=== PATIENT | male | born 1955 | race Caucasian/White ===

== ENCOUNTER 2021-03-13 15:12 | Observation (INO) | payer OTHER ==
--- OUTSIDE RECORDS SUMMARY | 2021-03-13 15:18 | XMS REPORT | Continuity of Care Document ---
:1955 Author Organization [facility] t Address [address] [place] [address] Dr. Barrera. [address] [place] [address] Care Team Providers Name Role Phone Yahaira Lema Primary Care Physician MARK LOPEZ Attending Clinician Unavailable Nurse, Pob Immunization Attending Clinician Unavailable Mark Lopez DO Attending Clinician Sanaz BLOUNT Attending Clinician Unavailable Rojelio MERCADO, A Attending Clinician Doctor Unassigned, Name Attending Clinician Unavailable Pob, Lab Main Attending Clinician Unavailable ROJELIO, A Admitting Clinician Unavailable Rojelio MERCADO, A Admitting Clinician Payers Payer Name Policy Type Policy Number Effective Date Expiration Date S [facility] MEDICARE PART A \T\ [id number] 2019 B 00:00:00 COMMERCIAL [id number] 2019 NON-CONTRACT 00:00:00 GENERIC Problems This patient has no known problems. Allergies, Adverse Reactions, Alerts Allergy Allergy Status Severity Reaction(s) Onset Inactive Treating Comm ents Source Name Type Date Date Clinician METRONID DRUG Active Other-Cmnt 2020-04 Univ ers AZOLE INGREDI 04-09 ity of 00:00: [place] [address] [place] [address] Branch Metronid Propensi Active Other - See 2020-04 Юлия Carter azole ty to comments 04-09 shivers ity of adverse 00:00: [place] reaction Medical Branch FLUTICAS DRUG Active Med Palpitations 2020-04 Un melvin ONE -05 ity of PROPION- 00:00: [place] SALMETER 00 Medical OL Branch Fluticas Propensi Active Palpitations 2020-04 Univers one ty to 05 ity of Propion- adverse 00:00: [place] Salmeter reaction 00 Medica l ol s Branch Flagyl Adverse Active shakes [facility] Advair Adverse Active Irregular HR [facility] Diskus Reaction palpiations [facility] NO KNOWN Drug Active Univers ALLERGIE Class ity of [facility] Social History Social Habit Start Date Stop Date Quantity Comments Source Exposure to Not sure [facility] SARS-CoV-2 (event) [facility] D[place] l [place] Tobacco use and 2021-02-07 2021-02-07 Never used [facility] exposure 00:00:00 00:00:00 [facility] Sex Ass[birth year] At [birth year] [facility] 00:00:00 00:00:00 [facility] Smoking Status Start Date Stop Date Source Unknown if ever smoked [facility] Never smoker [facility] Medications Ordered Filled Start Stop Current Ordering Indication Dosage Frequency Signature Comments Components Source Medication Medication Date Date Medication? Clinician (SIG) Name Name neomycin-po 2020-04 Yes PRN, Univer s lymyxin-dex 1-10 Starting ity of amethasone 14:34: on Sun (MAXITROL) 00 02/09/21 Medic al 3.5 at 0834, Branch mg/g-10,000 Until unit/g-0.1 Discontinu % ed, ophthalmic Routine, ointment Intra-op neomycin-po 2020-04 No PRN, Unive rs lymyxin-dex 1-10 02-09 Starting ity of amethasone 14:34: 17[place]26 [place] (MAXITROL[place] 00 :14 02/09/21 Medic al 3.5 at 0834, Branch mg/g-10,000 Until Sun unit/g-0.1 02/09/21 % at 1126, ophthalmic Routine, ointment Intra-op DUOVISC 2020-04 Yes PRN, Univers (DUOVISC 1-10 Starting ity of VISCO 14:33: on Sun [place] ELASTIC) 3 00 02/09/21 Medic al %-4 %(0.5 at 0833, Branch mL) 1 % Until (0.55 mL) Discontinu intraocular ed, injection Routine, Intra-op dexamethaso 2020-04 Yes PRN, Univer s ne - Starting ity of (DECADRON 14:33: on Sun [place] PHOSPHATE) 00 02/09/21 Medic al injection at 0833, Branch Until Discontinu ed, Routine, Intra-op ceFAZolin 2020-04 Yes PRN, Univers (ANCEF) 04-11 Starting ity of injection 14:33: on Wed [place] 00 02/09/21 Medical at 0833, Branch Until Discontinu ed, MESERET, Intra-op dexamethaso 2020-04- No PRN, Univcesar rs ne 04-11 Starting ity of (DECADRON 14:33: 17:26 on Sun PHOSPHATE) 00 :14 02/09/21 Medic al injection at 0833, Branch Until Sun02/09/21 at 1126, Routine, Intra-op ceFAZolin 2020-04- No PRN, Univers (ANCEF) 04-11 Starting ity of injection 14:33: 17:26 on Sun [place] 00 :14 02/09/21 Medical at 0833, Branch Until Sun02/09/21 at 1126, MESERET, Intra-op DUOVISC 2020-04- No PRN, Univers (DUOVISC 04-11 Starting ity of VISCO 14:33: 17:26 on Sun ELASTIC) 3 00 :14 02/09/21 Medic al %-4 %(0.5 at 0833, Branch mL) 1 % Until Sun (0.55 mL) 02/09/21 intraocular at 1126, injection Routine, Intra-op carbachoL 2020-04 Yes PRN, Univers (MIOSTAT) 04-11 Starting ity of 0.01 % 14:32: on Sun [place] intraocular 00 02/09/21 Medi nato injection at 0832, Branch Until Discontinu ed, Routine, Intra-op carbachoL 2020-04- No PRN, Univers (MIOSTAT) 04-11 Starting ity o f 0.01 % 14:32: 17:26 on Sun [place] intraocular 00 :14 11/10/21 Medi nato injection at 0832, Branch Until Sun02/09/21 at 1126, Routine, Intra-op sodium 2020-04 Yes PRN, Univers chloride 1-10 Starting ity of (NS) 14:30: on Sun [place] injection 00 02/09/21 Medica l at 0830, Branch Until Discontinu ed, Routine, Intra-op sodium 2020-04- No PRN, Univers chloride 1-10 11-10 Starting ity of (NS) 14:30: 17:26 on Sun [place] injection 00 :14 02/09/21 Medica l at 0830, Branch Until Sun02/09/21 at 1126, Routine, Intra-op EPINEPHrine 2020-04 Yes PRN, Univer s 1:1,000 (1 1-10 Starting ity o f mg/mL) 14:17: on Sun (ADRENALIN) 00 02/09/21 Medi nato injection at 0817, Branch Until Discontinu ed, Routine, Intra-op balanced 2020-04 Yes PRN, Univers salt irrig 1-10 Starting ity o f soln comb1 14:17: on Sun (BSS PLUS) 00 02/09/21 Medic al ophthalmic at 0817, Branc h solution Until 500 mL bag Discontinu ed, Routine, Intra-op EPINEPHrine 2020-04- No PRN, Unive rs 1:1,000 (1 1-10 11-10 Starting ity of mg/mL) 14:17: 17:26 on Sun (ADRENALIN) 00 :14 02/09/21 Medi nato injection at 0817, Branch Until Sun02/09/21 at 1126, Routine, Intra-op balanced 2020-04- No PRN, Univers salt irrig 1-10 11-10 Starting ity of soln comb1 14:17: 17:26 on Suna s (BSS PLUS) 00 :14 02/09/21 Medic al ophthalmic at 0817, Branc h solution Until Sun 500 mL bag 02/09/21 at 1126, Routine, Intra-op water for 2020-04 Yes PRN, Univers irrigation 1-10 Starting ity o f irrigation 14:12: on Sun [place] solution 00 02/09/21 Medical at 0812, Branch Until Discontinu ed, Routine, Intra-op water for 2020-04- No PRN, Univers irrigation 1-10 11-10 Starting ity of irrigation 14:12: 17:26 [place] solution 00 :14 02/09/21 Medical at 0812, Branch Until Sun02/09/21 at 1126, Routine, Intra-op Hyaluronida 2020-04 Yes PRN, Univer s se, Human 1-10 Starting ity of Recomb. 14:09: on Sun [place] (HYLENEX) 02/09/21 Medica l injection at 0809, Branch Until Discontinu ed, Routine, Intra-op eye block 2020-04 Yes PRN, Univers syringe 11 1-10 Starting ity o f mL 14:09: on Sun [place] 02/09/21 Medical at 0809, Branch Until Discontinu ed, Intra-op Hyaluronida 2020-04- No PRN, Unive rs se, Human 1- 11-10 Starting ity o f Recomb. 14:09: 17:26 on Sun [place] (HYLENEX) 00 :14 02/09/21 Medica l injection at 0809, Branch Until Sun02/09/21 at 1126, Routine, Intra-op eye block 2020-04- No PRN, Univers syringe 11 1-10 11-10 Starting ity of mL 14:09: 17:26 on Sun [place] 00 :14 02/09/21 Medical at 0809, Branch Until Sun02/09/21 at 1126, Intra-op mydriatic 2020-04- No .5mL 0.5 mL, Univ ers #5 1-10 11-10 Left Eye, ity of ophthalmic 13:00: 12:55 ONCE, 1 [place] solution 00 :00 dose, On Medical 0.5 mL [facility] syringe 02/09/21 at 0700, Routine, DSU Pre-op mydriatic 2020-04- No .5mL 0.5 mL, Univ ers #5 1-10 11-10 Left Eye, ity of ophthalmic 13:00: 12:55 ONCE, 1 [place] solution 00 :00 dose, On Medical 0.5 mL [facility] syringe 02/09/21 at 0700, Routine, DSU Pre-op lactated 2020-04- No 1000mL at 42 Unive rs ringers IV 1-10 11-10 mL/hr, ity of infusion 12:45: 13:04 1,000 mL, Kev as 1,000 mL 00 :00 IV Medical Infusion, Branch ONCE, 1 dose, On Sun02/09/21 at 0645, Routine, DSU Pre-op lactated 2020-04- No 1000mL at 42 Unive rs ringers IV 1-10 11-10 mL/hr, ity of infusion 12:45: 13:04 1,000 mL, Kev as 1,000 mL 00 :00 IV Medical Infusion, Branch ONCE, 1 dose, On Sun02/09/21 at 0645, Routine, DSU Pre-op NOVOLIN 2020-04 Yes Univers 70/30 U-100 0-19 ity of INSULIN 100 00:00: [place] unit/mL 00 Medical (70-30) Branch suspension NOVOLIN 2020-04 Yes Univers 70/30 U-100 0-19 ity of INSULIN 100 00:00: [place] unit/mL 00 Medical (70-30) Branch suspension NOVOLIN 2020-04 Yes Univers 70/30 U-100 0-19 ity of INSULIN 100 00:00: [place] unit/mL 00 Medical (70-30) Branch suspension NOVOLIN 2020-04 Yes Univers 70/30 U-100 0-19 ity of INSULIN 100 00:00: [place] unit/mL 00 Medical (70-30) Branch suspension atorvastati 2020-04 Yes Univer s n 20 mg 0-18 ity of tablet 00:00: Medical Branch carvediloL 2020-04 Yes Univers 12.5 mg 0-18 ity of tablet 00:00: Medical Branch clopidogreL 2020-04 Yes Univer s 75 mg 0-18 ity of tablet 00:00: Medical Branch glimepiride 2020-04 Yes Univer s 4 mg tablet 0-18 ity of 00:00: Medical Branch levocetiriz 2020-04 Yes Univer s ine 5 mg 0-18 ity of tablet 00:00: Medical Branch EUTHYROX 88 2020-04 Yes Univer s mcg tablet 0-18 ity of 00:00: [facility] Branch losartan-hy 2020-04 Yes Univer s drochloroth 0-18 ity of iazide 00:00: [place] 100-12.5 mg 00 Medical per tablet Branch metFORMIN 2020-04 Yes Univers 1,000 mg 0-18 ity of tablet 00:00: [place] [facility] Branch atorvastati 2020-04 Yes Univer s n 20 mg 0-18 ity of tablet 00:00: [address] Branch carvediloL 2020-04 Yes Univers 12.5 mg 0-18 ity of tablet 00:00: [place] [facility] Branch clopidogreL 2020-04 Yes Univer s 75 mg 0-18 ity of tablet 00:00: [place] [facility] Branch glimepiride 2020-04 Yes Univer s 4 mg tablet 0-18 ity of 00:00: [address] Branch levocetiriz 2020-04 Yes Univer s ine 5 mg 0-18 ity of tablet 00:00: [address] EUTHYROX 88 2020-04 Yes Univer s mcg tablet 0-18 ity of 00:00: [address] Branch losartan-hy 2020-04 Yes Univer s drochloroth 0-18 ity of iazide 00:00: [place] 100-12.5 mg 00 Medical per tablet Branch metFORMIN 2020-04 Yes Univers 1,000 mg 0-18 ity of tablet 00:00: [place] [facility] Branch atorvastati 2020-04 Yes Univer s n 20 mg 0-18 ity of tablet 00:00: [address] Branch carvediloL 2020-04 Yes Univers 12.5 mg 0-18 ity of tablet 00:00: [address] Branch clopidogreL 2020-04 Yes Univer s 75 mg 0-18 ity of tablet 00:00: [place] [facility] Branch glimepiride 2020-04 Yes Univer s 4 mg tablet 0-18 ity of 00:00: [place] [address] Medical Branch levocetiriz 2020-04 Yes Univer s ine 5 mg 0-18 ity of tablet 00:00: [address] EUTHYROX 88 2020-04 Yes Univer s mcg tablet 0-18 ity of 00:00: [address] Branch losartan-hy 2020-04 Yes Univer s drochloroth 0-18 ity of iazide 00:00: [place] 100-12.5 mg 00 Medical per tablet Branch metFORMIN 2020-04 Yes Univers 1,000 mg 0-18 ity of tablet 00:00: [place] 00 Medical Branch atorvastati 2020-04 Yes Univer s n 20 mg 0-18 ity of tablet 00:00: [place] 00 Medical Branch carvediloL 2020-04 Yes Univers 12.5 mg 0-18 ity of tablet 00:00: [place] 00 Medical Branch clopidogreL 2020-04 Yes Univer s 75 mg 0-18 ity of tablet 00:00: 00 Medical Branch glimepiride 2020-04 Yes Univer s 4 mg tablet 0-18 ity of 00:00: [place] 00 Medical Branch levocetiriz 2020-04 Yes Univer s ine 5 mg 0-18 ity of tablet 00:00: 00 Medical Branch EUTHYROX 88 2020-04 Yes Univer s mcg tablet 0-18 ity of 00:00: 00 Medical Branch losartan-hy 2020-04 Yes Univer s drochloroth 0-18 ity of iazide 00:00: [place] 100-12.5 mg 00 Medical per tablet Branch metFORMIN 2020-04 Yes Univers 1,000 mg 0-18 ity of tablet 00:00: [place] 00 Medical Branch Metformin Metformin 2020-0 Yes Chelo [address] HCl HCl 9-01 [place] with a [facility] 00:[facility] Immunizations Ordered Filled Immunization Date Status Comments Sour e Immunization Name Name SARS-COV-2 COVID-19 2021-02-16 Completed Unive rsity of MODERNA BOOSTER 00:00:00 [place] [facility] VACCINE Branch SARS-COV-2 COVID-19 2020-07-14 Completed Unive rsity of MODERNA VACCINE 00:00:00 [facility] SARS-COV-2 COVID-19 2020-07-14 Completed Unive rsity of MODERNA VACCINE 00:00:00 [facility] SARS-COV-2 COVID-19 2020-07-14 Completed Unive rsity of MODERNA VACCINE 00:00:00 [facility] SARS-COV-2 COVID-19 2020-07-14 Completed Unive rsity of MODERNA VACCINE 00:00:00 [facility] SARS-COV-2 COVID-19 2020-06-16 Completed Unive rsity of MODERNA VACCINE 00:00:00 [facility] SARS-COV-2 COVID-19 2020-06-16 Completed Unive rsity of MODERNA VACCINE 00:00:00 [facility] SARS-COV-2 COVID-19 2020-06-16 Completed Unive rsity of MODERNA VACCINE 00:00:00 [facility] SARS-COV-2 COVID-19 2020-06-16 Completed Unive rsity of MODERNA VACCINE 00:00:00 [facility] Vital Signs Vital Name Observation Time Observation Value Comments Source Respiratory rate 2021-02-09 14:55:00 14 /min Univ ersity [facility] [place] [facility] Systolic blood 2021-02-09 14:54:00 138 mm[Hg] Univer sity of pressure [facility] Diastolic blood 2021-02-09 14:54:00 69 mm[Hg] Unive rsity of pressure [facility] Heart rate 2021-02-09 14:54:00 68 /min [facility] Oxygen saturation in 2021-02-09 14:54:00 94 /min University of Arterial blood by [place] [employer] Pulse oximetry Branch Body temperature 2021-02-09 14:38:00 36.22 Carol Univ ersity [facility] [place] [facility] Body height 2021-02-04 15:22:00 172.8 cm [facility] Body weight 2021-02-04 15:22:00 123.9 kg [facility] BMI 2021-02-04 15:22:00 41.49 kg/m2 [facility] Systolic blood 2021-02-09 12:51:00 146 mm[Hg] Univer sity of pressure [facility] Diastolic blood 2021-02-09 12:51:00 74 mm[Hg] Unive rsity of pressure [facility] Heart rate 2021-02-09 12:51:00 73 /[facility] 2021-02-09 12:51:00 36.22 Carol Univ ers[facility] [place] [facility] Respiratory rate 2021-02-09 12:51:00 13 /min Univ ersity of [place] [facility] Oxygen saturation in 2021-02-09 12:51:00 96 /min University of Arterial blood by [facility] [place] [facility] Pulse oximetry [place] BMI 2021-02-04 15:22:00 41.49 kg/m2 [facility] Body height 2021-02-04 15:22:00 172.8 cm [facility] Body weight 2021-02-04 15:22:00 123.9 kg [facility] Procedures Procedure Date / Time Performing Source Performed Clinician SARS-COV-2 COVID-19 VACCINE 2021-02-16 Doctor Unassigned, [facility] BOOSTER,0.25ML,IM (MODERNA) 17:31:43 [place] [facility] PHACOEMULSIFICATION OF 2021-02-09 Vito Blount [facility] CATARACT WITH INTRAOCULAR 13:59:00 [facility] LENS IMPLANT POCT GLUCOSE (AUTOMATED) 2021-02-09 Vito Blount [facility] 13:02:00 [facility] POCT GLUCOSE (AUTOMATED) 2021-02-09 Vito Blount [facility] 13:02:00 [facility] DAY SURGERY - ADC 2021-02-09 Doctor Unassigned, [facility] 06:01:00 [place] [facility] ASSIGNMENT OF BENEFITS 2021-01-31 Doctor Unassigned, [facility] 18:06:26 [place] [facility] Encounters Start End Encounter Admission Attending Care Care Encounter Source Date/Time Date/Time Type Type Clinicians Facility Department ID 2021-02-16 2021-02-16 Outpatient R ADALGISA [facility] [id number] Univers 11:20:00 11:20:00 DC callahan [facility] 2021-02-16 2021-02-16 Imm/Inj Nurse, [facility] Pob Immunization [facility] [id number] Univers 11:14:58 11:15:06 Visit Dc Lopez [id number] .10 banner [facility] MEAGAN [id number] Nelly NEVES [id number] Wi dical [address] 2021-02-09 2021-02-09 Outpatient R ROJELIO [facility] OPH [id number] Univers 06:37:00 09:12:00 VITO callahan [facility] 2021-02-09 2021-02-09 [facility] [id number] Univers 06:37:00 09:12:00 Encounter Vito LOCKHART [id number] ity of [id number] SURGICAL [id number] [facility] 071 [place] 2021-02-09 2021-02-[address] [facility] [id number] Univers 07:30:00 08:09:00 Vito Yo CHANTELLE [id number] ity [facility] [id number] [place] SUR[place]ICAL [id number] [facility] 020 Branch 2021-02-09 2021-02-09 Orders Doctor DANTE [id number] Univers 00:00:00 00:00:00 Only Unassigned, [place] [id number] ity of [place] [facility] [id number] Kev as [id number] [address] 2021-02-08 2021-02-08 [facility] [id number] Univers 11:00:00 11:00:00 VITO callahan [facility] 2021-01-31 2021-01-31 Macaroni Maker Hannah, [facility] Lab Main [facility] [id number] Univers 13:03:41 13:18:41 Visit Vito Blount [id number] 0 ity [facility] [id number] [place] PROFESSIO [id number] [facility] 2021-01-31 2021-01-31 [facility] [id number] Univers 08:45:00 08:45:00 VITO callahan [facility] 2021-01-31 2021-01-31 Orders Doctor HOWELL [id number] Univers 00:00:00 00:00:00 Only Unassigned, [place] [id number] ity of [place] [facility] [id number] Kev as [id number] [facility] 009 [place] 2021-01-17 2021-01-17 Outpatient [facility]MLC [facility] [id number] [facility] 2020-12-23 2020-12-23 Outpatient [facility]LMLC [facility] [id number] [facility] 2020-12-23 2020-12-23 Outpatient [facility]LMLC [facility] [id number] [facility] 2020-12-21 2020-12-21 Outpatient [facility]LMLC [facility] [id number] [facility] 2020-11-10 2020-11-10 Outpatient STLMLC [facility] [id number] [facility] 2020-10-21 2020-10-21 Outpatient STLMLC STLC [id number] [facility] 2020-04-30 2020-04-30 Outpatient STLMLC [facility] [id number] [facility] 2020-01-21 2020-01-21 Outpatient STLMLC [facility]ML[facility] [id number] [facility] 2020-01-16 2020-01-16 Outpatient STLMLC [facility]ML[facility] [id number] [facility] 2019-12-02 2019-12-02 [facility] [id number] 09:59:00 09:59:[address] [place] [address] [facility] Family Medicine l Medicine Outpati ent Clinics 2019-10-31 2019-10-31 [facility] [id number] 08:40:00 08:40:[address] [place] [address] [facility] Family Medicine l Medicine Outpati ent Clinics 2019-10-23 2019-10-23 [facility] [id number] 17:21:00 17:21:00 t [facility] Medicine Medicine Outpati ent Clinics 2019-06-25 2019-06-25 [facility] [id number] 17:15:00 17:15:00 t [facility] Medicine Outpati ent Clinics 2019-06-06 2019-06-06 [facility] [id number] 13:54:00 13:54:00 t [facility] Medicine l Medicine Outpati ent Clinics 2019-05-02 2019-05-02 [facility] [id number] 09:40:00 09:40:00 t [facility] Medicine Outpati ent Clinics 2019-03-03 2019-03-03 [facility] [id number] 13:19:00 13:19:00 t [facility] Medicine Outpati ent Clinics 2019-02-19 2019-02-19 [facility] [id number] 11:46:00 11:46:00 t [facility] Medicine Outpati ent Clinics 2018-10-30 2018-10-30 [facility] [id number] 19:28:00 19:28:00 t [facility] Medicine Outpati ent Clinics 2018-10-25 2018-10-25 [facility] [id number] 09:40:00 09:40:00 t [facility] Medicine Medicine Outpati ent Clinics 2018-10-11 2018-10-11 [facility] [id number] 09:45:00 09:45:00 t [facility] Medicine Outpati ent Clinics 2018-04-23 2018-04-23 [facility] [id number] 14:30:00 14:30:00 t [facility] Medicine Medicine Outpati ent Clinics 2017-09-19 2017-09-19 [facility] [facility] [id number] 08:30:00 08:30:00 t [facility] Medicine Outpati ent Clinics 2017-09-10 2017-09-10 [facility] [id number] 15:42:00 15:42:00 t [facility] Medicine Outpati ent Clinics 2017-08-29 2017-08-29 Outpatient [facility] [id number] [facility] 14:48:00 14:48:00 t [facility] Medicine Outpati ent Clinics 2017-08-21 2017-08-21 Outpatient [place]um [facility] [id number] 15:45:00 15:45:00 t [facility] Medicine Outpati ent Clinics Results Test Description Test Time Test Comments Results Result Comments Source POCT GLUCOSE (AUTOMATED) 2021-02-09 13:07:21 Test Item Value Reference Range Interpretation Comme nts POCT GLU (test code = [id number]) 197 mg/dL 70-110 H Lab Interpretation (test code = 01760-0) Abnormal [facility] GLUCOSE (AUTOMATED)2021-02-09 13:07:21 Test Item Value Reference Range Interpretation Comments POCT GLU (test code = [id number]) 197 mg/dL 70-110 H Lab Interpretation (test code = Abnormal 13101-6) [facility] [id number] 13:02:00 Test Item Value Reference Range Interpretation Comments POCT Glu (age>30days) (test code = 197 mg/dL 70-110 A 3342) Lab Interpretation (test code = Abnormal 07950-6) [facility] [id number] 13:02:00 Test Item Value Reference Range Interpretation Comments POCT Glu (age>30days) (test code = 197 mg/dL 70-110 A 3342) Lab Interpretation (test code = Abnormal 00202-0) [facility]
[2021-03-13] MEDS ORDERED: ONDANSETRON 4 MG/2 ML VIAL ONE ×2 (16:44→21:44)
[2021-03-13] MEDS ORDERED: MORPHINE 4 MG/ML SYR ONE (16:44)
[2021-03-13] MEDS ORDERED: NA CHLORIDE 0.9% 500 ML ONE ×2 (16:45→18:24)
[2021-03-13] MEDS ORDERED: FAMOTIDINE 20 MG/2 ML VIAL IV ONE (16:45)
[2021-03-13 17:12] LABS: Urine Blood 3+ (Negative); Urine Glucose 2+ (Negative); Urine Protein 2+ (Negative)
[2021-03-13 17:19] LABS: Absolute Lymphocytes (CBC) 1.1 K/uL (0.7-4.9); Basophils % 0.3 % (0-1.3); MPV 8.6 fL (7.6-11.3); RBC Red Blood Cell Count 5.09 M/uL (4.33-5.43)
[2021-03-13 17:28] LABS: Protime INR 1.17
[2021-03-13 17:39] LABS: ALT/SGPT 54 U/L (12-78); AST/SGOT 32 U/L (15-37); Alkaline Phosphatase 84 U/L (45-117); BUN Blood Urea Nitrogen 34 mg/dL (7-18); Bicarbonate 26 mmol/L (21-32); Bilirubin Direct 0.3 mg/dL (0-0.2); Bilirubin Total 0.9 mg/dL (0.2-1.0); Glucose Level 259 mg/dL (74-106); Magnesium 2.1 mg/dL (1.8-2.4); NT PRO-BNP 395 pg/mL (<125); Protein, Total 8.7 g/dL (6.4-8.2); Sodium Level 138 mmol/L (136-145); Troponin (Emerg Dept Use Only) < 0.02 ng/mL (0.0-0.045)
--- NOTE | 2021-03-13 17:41 | RAD REPORT ---
EXAM DESCRIPTION: CT - Head Brain Wo Cont - 03/13/2021 5:17 pm CLINICAL HISTORY: HEADACHE COMPARISON: [place] Protocol dated 03/13/2021 TECHNIQUE: Axial 5 mm thick images of the head were obtained without IV contrast. All CT scans are performed using dose optimization technique as appropriate and may include automated exposure control or mA/KV adjustment according to patient size. FINDINGS: No intracranial hemorrhage, mass, edema or shift of mid-line structures. No acute cortical based infarction. No cortical edema or sulcal effacement. Dense arterial tree calcifications are pre sent. No abnormal extra-axial fluid collections. Atrophy changes are minimal with ventricles in propo rtion. Chronic ischemic changes minimal. Mastoid air cells and visualized portions of the paranasal sinuses are clear. No acute bony findings. IMPRESSION: Negative non-contrast CT head examination for acute finding.
--- NOTE | 2021-03-13 17:45 | RAD REPORT ---
EXAM DESCRIPTION: RAD - Chest Single View - 03/13/2021 5:11 pm CLINICAL HISTORY: ABDOMINAL DISTENTION COMPARISON: December 2013 TECHNIQUE: AP portable chest image was obtained 03/13/2021 5:11 pm . FINDINGS: No focal mass or consolidation. Interstitial pattern matches comparison. Body habitus and under penetrated portable technique accentuates the interstitial pattern. Hilar regions within normal limits and stable. Heart and vasculature are normal. No measurable pleural effusion and no pneumothorax. No acute bony abnormality seen. No acute aortic findings. Right hemidiaphragm elevation again noted. IMPRESSION: No acute cardiopulmonary process. No significant change from comparison study.
--- NOTE | 2021-03-13 17:54 | RAD REPORT ---
EXAM DESCRIPTION: CT - Stone Protocol - 03/13/2021 5:20 pm CLINICAL HISTORY: FLANK PAIN COMPARISON: No comparisons TECHNIQUE: Axial 3 mm thick images were obtained without oral or IV contrast. The obwab-ni-angy span s the entirety of the system including uppermost abdomen and lung bases. All CT scans are performed using dose optimization technique as appropriate and may include automated exposure control or mA/KV adjustment according to patient size. FINDINGS: Mild right-sided hydronephrosis is present secondary to a 5 mm obstructing calculus in the proximal right ureter. Patient has additional 2-3 mm sized nonobstructing calyx calculi. No left-ciera ed hydronephrosis or left-sided stone. No suspicious renal masses. Isodense masses and pyelonephritis are not excluded on a stone protocol CT scan. No significant adrenal finding. No urinary bladder octavio picious finding. Fatty infiltration noted in the liver without a focal liver lesion identifiable. No pancreas or splee n suspicious finding. Multiple 8-13 mm sized gallstones are present layering in the dependent portion of the gallbladder near the neck. No wall thickening or pericholecystic fluid. No biliary tree dilat ation. No suspicious bowel findings. Appendix is not identified. Patient appears to have appendectomy clips in place. No mass or bulky lymphadenopathy. Fat extends into the origin of each inguinal canal No free air, tirso e fluid or inflammatory stranding. No significant bony abnormality. IMPRESSION: Mild right-sided hydronephrosis secondary to 5 mm obstructing calculus in the proximal u reter. Isodense masses and pyelonephritis are not excluded on stone protocol technique. Additional nonacute findings detailed in the body of the report.
[2021-03-13 18:07] LABS: Urine Bacteria <20 /HPF (NONE SEEN); Urine RBC >50 /HPF (NONE SEEN)
[2021-03-13] MEDS ORDERED: TAMSULOSIN 0.4 MG SR CAP ONE (18:24)
[2021-03-13] MEDS ORDERED: MAGNESIUM SULFATE 1 gm IVPB 1 GM/100 ML BAG IV ONE (18:24)
[2021-03-13] MEDS ORDERED: HYDROMORPHONE HCL 1 MG/ML INJ ONE ×2 (18:24→21:43)
[2021-03-13] MEDS ORDERED: CEFTRIAXONE 1000 MG/VIAL ONE (18:24)
--- NOTE | 2021-03-13 21:22 | ER ---
Nurse's Notes [facility] Name: Robert Gould Age: 65 yrs Sex: Male : 1955 Arrival Date: 03/13/2021 Time: 15:13 Bed 2 Private MD: Chelo Lema Diagnosis: Calculus of kidney with calculus of ureter;Abnormal results of kidney function studies Presentation: 03/13 15:41 Chief complaint: Patient states: Right lower back pain that radiates up to RUQ/RLQ. vg1 States NVD. Also states has not taken any of medications due to vomiting and not being able to eat. Pt has not taken BP medications or DM medications. States has not been able to have a full flow of urine. Coronavirus screen: Vaccine status: Patient reports receiving the 2nd dose of the covid vaccine. Client denies travel out of the [place] in the last 14 days. Ebola Screen: Patient negative for fever greater than or equal to 101.5 degrees Fahrenheit, and additional compatible Ebola Virus Disease symptoms. Initial Sepsis Screen: Does the patient meet any 2 criteria? RR > 20 per min. Does the patient have a suspected source of infection? No. Patient's initial sepsis screen is negative. Risk Assessment: Do you want to hurt yourself or someone else? Patient reports no desire to harm self or others. Onset of symptoms was March 11, 2021. 15:41 Method Of Arrival: Ambulatory [facility] 15:41 Acuity: KYRA 3 vg1 Triage Assessment: 15:44 General: Appears in no apparent distress. uncomfortable, Behavior is cooperative. Pain: vg1 Complains of pain in left lower back and RUQ and RLQ Pain currently is 9 out of 10 on a pain scale. GI: Reports diarrhea, nausea, vomiting. Historical: - Allergies: 15:44 Flagyl; vg1 - Home Meds: 15:44 Metformin Oral [Active]; Glipizide Oral [Active]; atorvastatin oral [Active]; Plavix vg1 Oral [Active]; - PMHx: 15:44 Hypertensive disorder; Diabetes mellitus; Myocardial infarction; vg1 - PSHx: 15:44 Appendectomy; vg1 - Immunization history:: Client reports receiving the 2nd dose of the Covid vaccine. - Social history:: Smoking status: Patient denies any tobacco usage or history of. Screenin:37 Abuse screen: Denies threats or abuse. Denies injuries from another. Nutritional bp screening: No deficits noted. Tuberculosis screening: No symptoms or risk factors identified. Fall Risk None identified. Assessment: 16:00 General: SEE TRIAGE NOTE. GI: Abdomen is non-distended, obese. bp 17:36 Reassessment: PT RETURNED FROM CT. bp 18:41 Reassessment: No changes from previously documented assessment. Patient and/or family bp updated on plan of care and expected duration. Pain level reassessed. Patient is alert, oriented x 3, equal unlabored respirations, skin warm/dry/pink. IVF INFUSING. 21:59 Pain: Complains of pain in abdomen Pain currently is 6 out of 10 on a pain scale. tw5 Quality of pain is described as aching, dull. Cardiovascular: Capillary refill < 3 seconds is brisk in bilateral fingers. GI: Reports nausea. Vital Signs: 15:41 BP 202 / 92; Pulse 70; Resp 24; Temp 98.9; Pulse Ox 96% ; Weight 122.47 kg; Height 5 vg1 ft. 8 in. (172.72 cm); Pain 8/10; 17:30 BP 196 / 105; Pulse 67; Resp 17; Pulse Ox 96% ; bp 18:30 BP 192 / 92; Pulse 81; Resp 17; Pulse Ox 95% ; bp 21:59 BP 187 / 105; Pulse 76; Resp 14; Pulse Ox 96% on R/A; Pain 6/10; tw5 23:56 Pain 2/10; tw5 15:41 Body Mass Index 41.05 (122.47 kg, 172.72 cm) vg1 ED Course: 15:13 Patient arrived in ED. am2 15:14 Chelo Lema FNP-C is Private Physician. am2 15:44 Triage completed. vg1 15:44 Arm band placed on. vg1 15:53 Chris Colon PA is PHCP. cp 15:53 Kerwin Curiel MD is Attending Physician. cp 16:40 Nilson Escalona, GENA is Primary Nurse. bp 17:05 Inserted saline lock: 22 gauge in right antecubital area, using aseptic technique. bp Blood collected. 17:11 XRAY Chest (1 view) In Process Unspecified. EDMS 17:17 CT Head Brain wo Cont In Process Unspecified. EDMS 17:18 CT Stone Protocol In Process Unspecified. EDMS 17:37 Patient has correct armband on for positive identification. Bed in low position. Call bp light in reach. Side rails up X2. Adult w/ patient. 19:14 Primary Nurse role handed off by Nilson Escalona, RN mw2 20:25 BMP Sent. ds4 21:18 Kerwin Pedersen MD is Hospitalizing Provider. cp 21:31 Sophia Fisher is Primary Nurse. tw5 21:59 Urine Culture Sent. tw5 21:59 Urine Culture Sent. tw5 23:54 No provider procedures requiring assistance completed. Patient admitted, IV remains in tw5 place. Administered Medications: 17:00 Drug: NS 0.9% 500 ml Route: IV; Rate: 500 ml/hr; Site: right antecubital; bp 23:57 Follow up: Response: No adverse reaction; IV Status: Completed infusion tw5 17:00 Drug: morphine 4 mg Route: IVP; Site: right antecubital; bp 18:39 Follow up: Response: Pain is decreased bp 17:00 Drug: Zofran (Ondansetron) 4 mg Route: IVP; Site: right antecubital; bp 18:39 Follow up: Response: Nausea is decreased bp 17:00 Drug: Pepcid (famotidine) 20 mg Route: IVP; Site: right antecubital; bp 18:39 Follow up: Response: No adverse reaction bp 18:26 CANCELLED (Physician Discretion): NS 0.9% 500 ml IV at 125 ml/hr continuous cp 18:28 Not Given (Physician Discretion): NS 0.9% 500 ml IV at bolus once cp 18:30 Drug: Magnesium Sulfate 1 grams Route: IVPB; Infused Over: 1 hrs; Site: right bp antecubital; 23:56 Follow up: Response: No adverse reaction; IV Status: Completed infusion tw5 18:30 Drug: Flomax (tamsulosin) 0.4 mg Route: PO; bp 18:39 Follow up: Response: No adverse reaction bp 18:30 Drug: Rocephin - (cefTRIAXone) 1 grams Route: IVPB; Infused Over: 30 mins; Site: right bp antecubital; 23:56 Follow up: Response: No adverse reaction; IV Status: Completed infusion tw5 18:30 Drug: Dilaudid (HYDROmorphone) 1 mg Route: IVP; Site: right antecubital; bp 18:39 Follow up: Response: Pain is decreased bp 18:30 Drug: NS 0.9% 1000 ml Route: IV; Rate: 1000 ml; Site: right antecubital; bp 23:56 Follow up: IV Status: Completed infusion; Infusion continued upon admission tw5 21:58 Drug: Dilaudid (HYDROmorphone) 1 mg Route: IVP; Site: right antecubital; tw5 23:56 Follow up: Pain /10 Adult; Response: No adverse reaction; Pain is decreased; RASS: tw5 Alert and Calm (0) 21:58 Drug: Zofran (Ondansetron) 4 mg Route: IVP; Site: right antecubital; tw5 23:56 Follow up: Response: No adverse reaction tw5 Outcome: 21:21 Decision to Hospitalize by Provider. cp 23:52 Admitted to Med/surg room Called report to [facility]. tw5 23:54 Condition: stable tw5 23:54 Instructed on the need for admit. 03/14 00:42 Patient left the ED. lp1 Signatures: Dispatcher [employer] EDMS Olinda Santiago RN RN lp1 Andrew Reed ds4 Chris Colon PA PA cp Moreno, Amanda am2 Nilson Escalona, RN RN bp Drew Villagran mw2 Padma Tomlinson RN RN vg1 Sophia Fisher tw5 Corrections: (The following items were deleted from the chart) 03/13 15:47 15:44 PMHx: Hypothyroidism; vg1 vg1 15:49 15:41 Chief complaint: Patient states: Right lower back pain that radiates up to vg1 RUQ/RLQ. States NVD. Also states has not taken any of medications due to vomiting and not being able to eat. Pt has not taken BP medications or DM medications vg1 17:37 17:36 Reassessment: PT RETURNED FROM CT bp bp
--- NOTE | 2021-03-13 21:22 | EDPHYS ---
Physician Documentation [facility] Name: Robert Gould Age: 65 yrs Sex: Male : 1955 Arrival Date: 03/13/2021 Time: 15:13 Bed 2 Private MD: Chelo Lema ED Physician Kerwin Curiel HPI: 03/13 16:20 This 65 yrs old Male presents to ER via Ambulatory with complaints of Flank Pain, cp Nausea/Vomiting, Headache. 16:20 The patient complains of pain in the right flank. The pain radiates to the abdomen. cp Onset: The symptoms/episode began/occurred 2 day(s) ago. Associated signs and symptoms: Pertinent positives: headache. 16:20 Severity of pain: in the emergency department the pain is unchanged despite home cp interventions. Historical: - Allergies: 15:44 Flagyl; vg1 - Home Meds: 15:44 Metformin Oral [Active]; Glipizide Oral [Active]; atorvastatin oral [Active]; Plavix vg1 Oral [Active]; - PMHx: 15:44 Hypertensive disorder; Diabetes mellitus; Myocardial infarction; vg1 - PSHx: 15:44 Appendectomy; vg1 - Immunization history:: Client reports receiving the 2nd dose of the Covid vaccine. - Social history:: Smoking status: Patient denies any tobacco usage or history of. ROS: 16:30 Constitutional: Positive for poor PO intake, Negative for body aches, chills, fever. cp 16:30 Eyes: Negative for injury, pain, redness, and discharge. cp 16:30 ENT: Negative for ear pain, sore throat, difficulty swallowing, difficulty handling secretions. 16:30 Cardiovascular: Negative for chest pain, edema. 16:30 Respiratory: Negative for cough, shortness of breath, wheezing. 16:30 Abdomen/GI: Positive for abdominal pain, nausea and vomiting, Negative for diarrhea, constipation, anorexia. 16:30 Back: Positive for flank pain, on the right. 16:30 : Positive for small amounts, Negative for burning with urination, testicular pain 16:30 Skin: Negative for cellulitis, rash. 16:30 Neuro: Negative for altered mental status, headache, numbness, weakness. 16:30 All other systems are negative. Exam: 16:35 Constitutional: The patient appears in no acute distress, alert, awake, cp non-diaphoretic, non-toxic, well developed, well nourished, obese, uncomfortable. 16:35 Head/Face: Normocephalic, atraumatic. cp 16:35 Eyes: Periorbital structures: appear normal, Conjunctiva: normal, no exudate, no injection, Sclera: no appreciated abnormality, Lids and lashes: appear normal, bilaterally. 16:35 ENT: External ear(s): are unremarkable, Nose: is normal, Mouth: Lips: moist, Oral mucosa: moist, Posterior pharynx: Airway: no evidence of obstruction, patent. 16:35 Neck: ROM/movement: is normal, is supple, without pain, no range of motions limitations. 16:35 Chest/axilla: Inspection: normal, Palpation: is normal, no crepitus, no tenderness. 16:35 Cardiovascular: Rate: normal, Rhythm: regular, Edema: is not appreciated, JVD: is not appreciated. 16:35 Respiratory: the patient does not display signs of respiratory distress, Respirations: normal, no use of accessory muscles, no retractions, labored breathing, is not present, Breath sounds: are clear throughout, no decreased breath sounds, no stridor, no wheezing. 16:35 Abdomen/GI: Inspection: obese Bowel sounds: active, all quadrants, Palpation: soft, in all quadrants, moderate abdominal tenderness, in the right upper quadrant and right lower quadrant, rebound tenderness, is not appreciated, voluntary guarding, is elicited in the anterior aspect of right lateral abdomen and posterior aspect of right lateral abdomen. 16:35 Back: pain, that is severe, of the right flank, ROM is normal, vertebral tenderness, is not appreciated. 16:35 Skin: no rash present. 16:35 Neuro: Orientation: to person, place \T\ time. Mentation: is normal, Motor: moves all fours, strength is normal, Sensation: is normal. 18:25 ECG was reviewed by the Attending Physician. cp Vital Signs: 15:41 BP 202 / 92; Pulse 70; Resp 24; Temp 98.9; Pulse Ox 96% ; Weight 122.47 kg; Height 5 vg1 ft. 8 in. (172.72 cm); Pain 8/10; 17:30 BP 196 / 105; Pulse 67; Resp 17; Pulse Ox 96% ; bp 18:30 BP 192 / 92; Pulse 81; Resp 17; Pulse Ox 95% ; bp 21:59 BP 187 / 105; Pulse 76; Resp 14; Pulse Ox 96% on R/A; Pain 6/10; tw5 23:56 Pain 2/10; tw5 15:41 Body Mass Index 41.05 (122.47 kg, 172.72 cm) vg1 MDM: 16:00 Patient medically screened. 21:00 Data reviewed: vital signs, nurses notes, lab test result(s), EKG, radiologic studies, cp CT scan. 21:00 Test interpretation: by ED physician or midlevel provider: ECG, plain radiologic cp studies. 21:10 Physician consultation: Robin Sharma MD was called at 21:10, was contacted at 21:10, regarding consult, patient's condition, and will see patient in inpatient room, tomorrow, would like admission per Dr. Rory Huddleston. 03/13 16:10 Order name: Basic Metabolic Panel; Complete Time: 18:11 03/13 18:11 Interpretation: Normal except: GLUC 259; BUN 34; CRE 1.84; GFR 37. 03/13 16:10 Order name: CBC with Diff; Complete Time: 18:11 03/13 18:11 Interpretation: Normal except: WBC 14.00; PLT 126; CARLOS% 86.2; LYM% 8.0; NEUT A 12.0. 03/13 16:10 Order name: LFT's; Complete Time: 18:11 03/13 18:11 Interpretation: Normal except: BILID 0.3; TP 8.7; GLOB 4.7; A/G 0.9. 03/13 16:10 Order name: Magnesium; Complete Time: 18:11 12 16:10 Order name: NT PRO-BNP; Complete Time: 18:11 03/13 16:10 Order name: PT-INR; Complete Time: 18:11 03/13 16:10 Order name: Troponin (emerg Dept Use Only); Complete Time: 18:11 03/13 16:10 Order name: Urine Microscopic Only; Complete Time: 18:11 03/13 18:11 Interpretation: Normal except: URBC >50. 03/13 17:12 Order name: Urine Dipstick-Ancillary; Complete Time: 18:11 EDMS 03/13 18:12 Interpretation: Normal except: UGLUC 2+; UKET 2+; UBLD 3+; UPROT 2+. 03/13 18:15 Order name: Urine Culture 03/13 18:15 Order name: Urine Culture EDCO 03/13 19:42 Order name: BMP; Complete Time: 20:54 cp 03/13 20:55 Interpretation: Normal except: GLUC 242; BUN 34; CRE 1.79; GFR 38. cp 03/13 22:12 Order name: SARS-COV-2 RT PCR EDCO 03/13 16:10 Order name: XRAY Chest (1 view); Complete Time: 18:11 cp 03/13 16:47 Order name: CT Head Brain wo Cont; Complete Time: 18:11 03/13 16:47 Order name: CT Stone Protocol; Complete Time: 18:11 03/13 16:10 Order name: EKG; Complete Time: 16:12 03/13 16:10 Order name: Cardiac monitoring; Complete Time: 16:40 03/13 16:10 Order name: EKG - Nurse/Tech; Complete Time: 18:39 03/13 16:10 Order name: IV Saline Lock; Complete Time: 17:04 03/13 16:10 Order name: Labs collected and sent; Complete Time: 17:04 03/13 16:10 Order name: O2 Per Protocol; Complete Time: 16:41 03/13 16:10 Order name: O2 Sat Monitoring; Complete Time: 16:41 03/13 16:10 Order name: Urine Dipstick-Ancillary (obtain specimen); Complete Time: 17:04 cp EC:25 Rate is 65 beats/min. Rhythm is regular. MO interval is normal. QRS interval is cp prolonged at 104 msec. QT interval is normal. T waves are Inverted in lead aVR. Interpreted by me. Reviewed by me. Administered Medications: 17:00 Drug: NS 0.9% 500 ml Route: IV; Rate: 500 ml/hr; Site: right antecubital; bp 23:57 Follow up: Response: No adverse reaction; IV Status: Completed infusion tw5 17:00 Drug: morphine 4 mg Route: IVP; Site: right antecubital; bp 18:39 Follow up: Response: Pain is decreased bp 17:00 Drug: Zofran (Ondansetron) 4 mg Route: IVP; Site: right antecubital; bp 18:39 Follow up: Response: Nausea is decreased bp 17:00 Drug: Pepcid (famotidine) 20 mg Route: IVP; Site: right antecubital; bp 18:39 Follow up: Response: No adverse reaction bp 18:26 CANCELLED (Physician Discretion): NS 0.9% 500 ml IV at 125 ml/hr continuous cp 18:28 Not Given (Physician Discretion): NS 0.9% 500 ml IV at bolus once cp 18:30 Drug: Magnesium Sulfate 1 grams Route: IVPB; Infused Over: 1 hrs; Site: right bp antecubital; 23:56 Follow up: Response: No adverse reaction; IV Status: Completed infusion tw5 18:30 Drug: Flomax (tamsulosin) 0.4 mg Route: PO; bp 18:39 Follow up: Response: No adverse reaction bp 18:30 Drug: Rocephin - (cefTRIAXone) 1 grams Route: IVPB; Infused Over: 30 mins; Site: right bp antecubital; 23:56 Follow up: Response: No adverse reaction; IV Status: Completed infusion tw5 18:30 Drug: Dilaudid (HYDROmorphone) 1 mg Route: IVP; Site: right antecubital; bp 18:39 Follow up: Response: Pain is decreased bp 18:30 Drug: NS 0.9% 1000 ml Route: IV; Rate: 1000 ml; Site: right antecubital; bp 23:56 Follow up: IV Status: Completed infusion; Infusion continued upon admission tw5 21:58 Drug: Dilaudid (HYDROmorphone) 1 mg Route: IVP; Site: right antecubital; tw5 23:56 Follow up: Pain 2/10 Adult; Response: No adverse reaction; Pain is decreased; RASS: tw5 Alert and Calm (0) 21:58 Drug: Zofran (Ondansetron) 4 mg Route: IVP; Site: right antecubital; tw5 23:56 Follow up: Response: No adverse reaction tw5 Disposition Summary: 03/13/21 21:21 Hospitalization Ordered Hospitalization Status: Observation cp Provider: Kerwin Pedersen cp Location: Telemetry/MedSurg (observation) cp Condition: Fair cp Problem: new cp Symptoms: have improved cp Bed/Room Type: Standard cp Room Assignment: 205(03/13/21 23:14) cg Diagnosis - Calculus of kidney with calculus of ureter cp - Abnormal results of kidney function studies cp Forms: - Medication Reconciliation Form cp - SBAR form cp Signatures: Dispatcher [employer] EDMS Chris Colon PA PA cp Mariza Tomlinson, RN RN cg Nilson Escalona RN RN bp Padma Tomlinson RN RN 1 Sophia Fisher tw5 Corrections: (The following items were deleted from the chart) 15:47 15:44 PMHx: Hypothyroidism; vg1 vg1 18:11 18:11 Normal except: BILID 0.3; TP 8.7. cp cp 18:26 18:16 NS 0.9% 500 ml IV at 125 ml/hr continuous ordered. cp cp 22:12 22:03 CORONAVIRUS+BRZ ordered. EDMS EDMS 23:14 21:21 cp cg
--- NOTE | 2021-03-13 22:17 | P.HP ---
Certification for Inpatient Patient admitted to: Observation With expected LOS: <2 Midnights Patient will require the following post-hospital care: None Practitioner: I am a practitioner with admitting privileges, knowledge of patient current condition, hospital course, and medical plan of care. Services: Services provided to patient in accordance with Admission requirements found in Title 42 Section 412.3 of the Code of Federal Regulations <Rory Huddleston - Last Filed: 03/13/21 22:14> Patient History Date of Service: 03/13/21 Primary Care Provider: Precious balderrama Reason for admission: Ureteral calculi History of Present Illness: 65-year-old male with history of diabetes mellitus type 2, hypertension, CAD, asbestosis and obstructive sleep apnea presents the emergency department for right flank pain. Patient reports that right flank pain is been present for the last few days. Patient was evaluated in the emergency department labs were significant for white blood cell count 14 platelet count 126 creatinine 1.79 GFR 38 glucose 242 microscopic with greater than 50 red blood cells no bacteria noted CT abdomen pelvis demonstrates 5 mm right proximal ureteral stone resulting in mild right-sided hydronephrosis. Patient also with intractable pain secondary to obstructing ureteral stone. Patient given multiple rounds of IV narcotic pain medication still with vomiting and pain. ED provider wishes to admit for further evaluation and management. Case was discussed with nephrology by ER provider who will see patient tomorrow. - Past Medical/Surgical History -: Diabetes type 2 -: Hypertension -: CAD -: CHRISTINE -: Asbestosis -: Appendectomy Psychosocial/ Personal History: Patient is retired, lives at home with his - Family History Father -: Heart disease, Diabetes Mother -: Heart disease, Diabetes Brother -: Heart disease, Diabetes Sister -: Heart disease, Diabetes - Social History Smoking Status: Never smoker Alcohol use: No CD- Drugs: No Caffeine use: No Place of Residence: Home <Rory Huddleston - Last Filed: 03/13/21 22:14> Date of Service: 03/14/21 <Kerwin Pedersen - Last Filed: 03/16/21 08:02> Allergies fluticasone [From Advair Diskus] Allergy (Verified 03/14/21 00:46) fast heart rate metronidazole [From Flagyl] Allergy (Verified 06/03/15 10:34) tremors salmeterol [From Advair Diskus] Allergy (Verified 03/14/21 00:46) fast heart rate Review of Systems 10-point ROS is otherwise unremarkable Gastrointestinal: Nausea, Vomiting, Abdominal Pain, As per HPI <Rory Huddleston - Last Filed: 03/13/21 22:14> Physical Examination - Physical Exam General: Alert, In no apparent distress, Oriented x3 HEENT: Atraumatic, PERRLA, Mucous membr. moist/pink, EOMI, Sclerae nonicteric Neck: Supple, 2+ carotid pulse no bruit, No LAD, Without JVD or thyroid abnormality Respiratory: Clear to auscultation bilaterally, Normal air movement Cardiovascular: Regular rate/rhythm, Normal S1 S2 Gastrointestinal: Normal bowel sounds, No tenderness, No rebound, No guarding Musculoskeletal: No tenderness Integumentary: No rashes Neurological: Normal gait, Normal speech, Normal strength at 5/5 x4 extr, Normal tone, Normal affect Lymphatics: No axilla or inguinal lymphadenopathy - Studies Laboratory Data (last 24 hrs) 03/13/21 20:21: Sodium 138, Potassium 4.0, BUN 34 H, Creatinine 1.79 H, Glucose 242 H 03/13/21 17:00: PT 13.5 H, INR 1.17 03/13/21 17:00: WBC 14.00 H, Hgb 15.7, Hct 47.0, Plt Count 126 L 03/13/21 17:00: Sodium 138, Potassium 4.0, BUN 34 H, Creatinine 1.84 H, Glucose 259 H, Magnesium 2.1, Total Bilirubin 0.9, AST 32, ALT 54, Alkaline Phosphatase 84 <Rory Huddleston - Last Filed: 03/13/21 22:14> - Studies Microbiology Data (last 24 hrs): 03/13/21 21:51 Clean Catch Urine [place] Count - Final BETWEEN 10,000 & 100,000 CFU/ML 03/13/21 21:51 Clean Catch Urine - Final MIXED HARSH. <Kerwin Pedersen - Last Filed: 03/16/21 08:02> Assessment and Plan - Plan Assessment: Intractable pain, vomiting secondary to 5 mm proximal right ureteral stone resulting in mild right hydronephrosis Diabetes type [id number] with hyperglycemia Hypertension CAD Plan: Intractable pain, vomiting secondary to 5 mm proximal right ureteral stone resulting in mild right hydronephrosis: N.p.o. after midnight, IV fluids, p.o. Flomax. Urology consulted. Diabetes type [id number] with hyperglycemia: Every 6 hours Accu- Chek, sliding scale insulin therapy. A1c with morning labs. Hypertension: As needed IV blood pressure medication CAD: Continue home medications when appropriate. Monitor on telemetry. DVT PPX: SCDs Code status: Full code Discharge Plan: Home Plan to discharge in: 24 Hours - Advance Directives Does patient have a Living Will: No Does patient have a Durable POA for Healthcare: No - Code Status/Comfort Care Code Status Assessed: Yes (Full code) Critical Care: No Time Spent Managing Pts Care (In Minutes): 55 <Rory Huddleston - Last Filed: 03/13/21 22:14> Date of Service: 03/14/21 Subjective: Agree with the HPI as mentioned above Physical Examination: Vitals: Afebrile vital signs are stable Physical exam: Cardiovascular: Within normal limits. Lungs: Within normal limits Abdomen: Within normal limits Neuro: Awake, alert, oriented to person place and time Assessment/Plan: 1. Continue with plan of care as mentioned above <Kerwin Pedersen - Last Filed: 03/16/21 08:02>
[2021-03-14 00:44] VITALS: BMI 24.3
[2021-03-14] MEDS: NA CHLORIDE 0.9% 1,000 ML IV SCH ×2 (00:59→10:12)
[2021-03-14] MEDS: HYDROMORPHONE HCL 0.5 MG/0.5 ML INJ IV PRN ×2 (02:35→10:04)
[2021-03-14] MEDS: ONDANSETRON 4 MG/2 ML VIAL IV PRN ×2 (02:38→10:04)
[2021-03-14 03:03] LABS: Urine Appearance CLEAR (Clear); Urine Bilirubin NEGATIVE (Negative); Urine Blood 3+ (Negative); Urine Color DK YELLOW (Yellow); Urine Glucose 1+ (Negative); Urine Protein 2+ (Negative)
[2021-03-14 03:07] LABS: Urine Microscopic Reflex ORDER UMIC
[2021-03-14 03:32] LABS: Urine Bacteria <20 /HPF (NONE SEEN); Urine RBC >50 /HPF (NONE SEEN)
[2021-03-14 05:40] LABS: Absolute Lymphocytes (CBC) 1.6 K/uL (0.7-4.9); Basophils % 0.3 % (0-1.3); Hematocrit 46.1 % (39.6-49.0); Lymphocytes % 11.1 % (15.3-44.8); MPV 8.4 fL (7.6-11.3); RBC Red Blood Cell Count 5.03 M/uL (4.33-5.43)
[2021-03-14] MEDS: INSULIN -REGULAR HUMAN 50 UNIT/0.5 ML ML SQ SCH ×4 (06:00→17:11)
[2021-03-14 06:03] LABS: Albumin 3.6 g/dL (3.4-5.0); Bilirubin Total 0.7 mg/dL (0.2-1.0); Potassium 4.4 mmol/L (3.5-5.1); Protein, Total 7.9 g/dL (6.4-8.2)
[2021-03-14] MEDS ORDERED: INSULIN -REGULAR HUMAN 50 UNIT/0.5 ML ML SQ SCH (07:30)
[2021-03-14] MEDS ORDERED: METOPROLOL TARTRATE 5 MG/5 ML INJ IV PRN (07:35)
[2021-03-14] MEDS ORDERED: TAMSULOSIN 0.4 MG SR CAP PO SCH (09:00)
[2021-03-14] MEDS ORDERED: CEFAZOLIN/SWI 2gm 2 GM/20 ML SYR ONE (12:11)
[2021-03-14] MEDS ORDERED: FENTANYL CITR 100 MCG/2 ML ONE (12:23)
[2021-03-14] MEDS ORDERED: ROCURONIUM 50 MG/5 ML VIAL IV ONE (12:23)
[2021-03-14] MEDS ORDERED: LIDOCAINE 1% MPF 5 ML VIAL ONE (12:23)
[2021-03-14] MEDS ORDERED: propofoL 200 MG/20 ML VIAL IV ONE (12:23)
[2021-03-14] MEDS ORDERED: MIDAZOLAM HCL 2 MG/2 ML INJ ONE (12:25)
[2021-03-14] MEDS ORDERED: GLYCOPYRROLATE 0.2 MG/ML SYR ONE (12:25)
--- NOTE | 2021-03-14 13:12 | RAD REPORT ---
EXAM DESCRIPTION: RAD - Urethrocystogrphy Retrograde - 03/14/2021 1:07 pm CLINICAL HISTORY: RIGHT STENT PLACEMENT COMPARISON: No comparisons FINDINGS: Total fluoro time: 0.11 seconds
[2021-03-14] MEDS ORDERED: CODEINE 30MG/APAP 300MG TAB PO PRN ×2 (13:15→13:38)
[2021-03-14] MEDS ORDERED: PHENAZOPYRIDINE 100MG TAB PO ONE (13:15)
[2021-03-14 13:26] VITALS: O2SAT 94
--- NOTE | 2021-03-14 13:42 | OP ---
Surgeon: ROLANDO BECKFORD Preoperative Diagnoses: 1.Right ureterolithiasis, 5 mm. 2.Acute kidney injury. 3.Bilateral renal atrophy, mild. Postoperative Diagnoses: 1.Right ureterolithiasis, 5 mm. 2.Acute kidney injury. 3.Bilateral renal atrophy, mild. Principal Procedure: 1.Cystoscopy. 2.Right retrograde pyelography. 3.Right ureteral stent placement. Indication For Procedure: Mr. Gould presented to the emergency department with a 3-day history of nausea and vomiting associated with some chills and the presence of a 5 mm obstructing proximal uret eral calculus observed on CT. He was admitted because of acute kidney injury with a creatinine eleva cornelia to over 1.8. Procedure In Detail: The patient was consented in the preoperative holding area before being transfe rred to the operative suite where general anesthesia using an LMA was induced. He was given Ancef 2 g IV antimicrobial prophylaxis and pneumo boots were provided for DVT prophylaxis. He was placed in the lithotomy position, padded and secured to the table appropriately. His genitalia were prepped us ing Hibiclens and draped in a standard fashion. The case was begun using a 22-Emirati rigid cystoscop e to traverse the urethra and into the bladder with ease. The bladder was surveyed in its entirety, and no mucosal lesions, foreign bodies, or stones were noted throughout. The ureteral orifices were orthotopic in location and the right ureteral orifice was noted to have blood emanating from it. As a result, using the tip of the Sensor wire and a 5-Emirati ureteral access catheter, I was able to can nulate the ureteral orifice. Right retrograde pyelography: Using a 70:30 mixture of Omnipaque and saline, contrast mixture was injected via the lumen of the 5-F rench ureteral access catheter and did propagate up a moderately dilated ureter into the collecting s ystem, which had delayed nephrogram. Only a portion of the renal pelvis and lower pole was delineate d, but this was sufficient to pass a Sensor wire via the ureteral access catheter and see it coil the re fluoroscopically. I then passed over the Sensor wire a 6-Emirati x 26 cm double-J ureteral stent w ith a coil observed fluoroscopically within the kidney and 1 cystoscopically within the bladder. I t hen decompressed his bladder of any fluid and urine, and he was awakened from general anesthesia befo re being transferred to a stretcher. He was then transferred to the recovery room in good condition. Complications: None. Discharge Disposition: He should follow up in urology clinic for consultation and planning for defin itive management of his right-sided stone. Subsequent evaluation to ensure resolution of the acute k idney injury is in order, though with the bilateral renal atrophy noted. On imaging, I suspect his b aseline may be somewhat elevated in general. WR/MODL Voice ID: [id number] Report ID: [id number]
[2021-03-14 16:32] VITALS: BP 128/59; TEMP 97.3
--- NOTE | 2021-03-16 08:05 | P.DS ---
Discharge Date: 03/14/21 Primary Care Provider: Precious lema Disposition: ROUTINE DISCHARGE Discharge Condition: GOOD Reason for Admission: Ureteral calculi Brief History of Present Illness: Patient is [id number] male with history of diabetes mellitus type 2, hypertension, CAD, asbestosis and obstructive sleep apnea presents the emergency department for right flank pain. Patient reports that right flank pain is been present for the last few days. Patient was evaluated in the emergency department labs were significant for white blood cell count 14 platelet count 126 creatinine 1.79 GFR 38 glucose 242 microscopic with greater than 50 red blood cells no bacteria noted CT abdomen pelvis demonstrates 5 mm right proximal ureteral stone resulting in mild right-sided hydronephrosis. Patient also with intractable pain secondary to obstructing ureteral stone. Patient given multiple rounds of IV narcotic pain medication still with vomiting and pain. ED provider wishes to admit for further evaluation and management. Case was discussed with nephrology by ER provider who will see patient tomorrow. Hospital Course: Patient had a cystoscopy and ureteral stent placed. Patient is clinically doing well. Pain is controlled. At this time will continue with pain medication and patient will be discharged home with outpatient follow with Urology. At this time, patient is stable for discharge home. Vital Signs/Physical Exam: Temp Pulse Resp BP Pulse Ox 97.3 F 87 20 128/59 L 95 03/14/21 16:00 03/14/21 16:00 03/14/21 16:00 03/14/21 16:00 03/14/21 16:00 General: Alert, In no apparent distress, Oriented x3 Laboratory Data at Discharge: WBC 14.30 K/uL (4.3-10.9) H 03/14/21 05:20 Hgb 15.4 g/dL (13.6-17.9) 03/14/21 05:20 Hct 46.1 % (39.6-49.0) 03/14/21 05:20 Plt Count 120 K/uL (152-406) L 03/14/21 05:20 PT 13.5 SECONDS (9.5-12.5) H 03/13/21 17:00 INR 1.17 03/13/21 17:00 Sodium 138 mmol/L (136-145) 03/14/21 05:20 Potassium 4.4 mmol/L (3.5-5.1) 03/14/21 05:20 BUN 34 mg/dL (7-18) H 03/14/21 05:20 Creatinine 1.88 mg/dL (0.55-1.3) H 03/14/21 05:20 Glucose 209 mg/dL (74-106) H 03/14/21 05:20 Magnesium 2.1 mg/dL (1.8-2.4) 03/13/21 17:00 Total Bilirubin 0.7 mg/dL (0.2-1.0) 03/14/21 05:20 AST 22 U/L (15-37) 03/14/21 05:20 ALT 43 U/L (12-78) 03/14/21 05:20 Alkaline Phosphatase 75 U/L (45-117) 03/14/21 05:20 Home Medications: Aspirin [Aspirin EC 81 MG] 81 mg PO DAILY 03/14/21 Atorvastatin Calcium 20 mg PO DAILY 03/14/21 Carvedilol [Coreg] 12.5 mg PO DAILY 03/14/21 Cefdinir [Omnicef] 300 mg PO BID #10 capsule 03/14/21 Cholecalciferol (Vitamin D3) [Vitamin D3] 1,000 unit PO DAILY 03/14/21 Clopidogrel Bisulfate [Plavix*] 75 mg PO DAILY 03/14/21 Codeine/APAP [Tylenol W/Codeine #3 tab] 1 tab PO Q6HP PRN #20 tab 03/14/21 Fish Oil/Dha/Epa [Fish Oil 1,200 mg Fish Oil] 1 tab PO BID 03/14/21 Glimepiride 4 mg PO BID 03/14/21 Insulin 70/30 NPH/Reg Human [Novolin 70/30*] 33 units SQ BID 03/14/21 Levocetirizine Dihydrochloride [Xyzal] 5 mg PO BEDTIME 03/14/21 Levothyroxine Sodium [Levothyroxine] 88 mcg PO DAILY 03/14/21 Losartan/Hydrochlorothiazide [Losartan-Hctz 100-12.5 mg Tab] 1 tab PO DAILY 03/14/21 Metformin HCl 1,000 mg PO BID 03/14/21 Multivitamin 1 tab PO DAILY 03/14/21 Niacin 500 mg PO BID 03/14/21 Vitamin B Complex/Folic Acid [Balance B-100 Tablet] 1 tab PO DAILY 03/14/21 New Medications: Cefdinir [Omnicef] 300 mg PO BID #10 capsule Codeine/APAP [Tylenol W/Codeine #3 tab] 1 tab PO Q6HP PRN #20 tab PRN Reason: Pain Scale 8-10 (Severe) Physician Discharge Instructions: OK TO DC IV AND DC HOME FOLLOW-UP WITH PRIMARY CARE PROVIDER IN 1-2 WEEKS FOLLOW-UP WITH UROLOGY IN 1-2 WEEKS RETURN TO THE ER IF symptoms worsen CALL or TEXT DR. MURRIETA AT [phone] IF ANY QUESTIONS REGARDING HOSPITAL STAY. PLEASE CALL THE FLOOR AT [phone] IF ANY MEDICATION OR NURSING QUESTIONS. Diet: AHA Activity: Fall precautions Followup: Cheol Lema NP [Primary Care Provider] - 1-2 Weeks Robin Sharma [ACTIVE - CAN ADMIT] - 1-2 Weeks Time spent managing pt's care (in minutes): 35
== END 2021-03-14 20:30 | disposition home or self-care (01) ==
LOC: ER 15:12 → ERHOLD 22:19 → 2ND 23:48
PROVIDERS: ADMIT Hospitalist; ATTEND Hospitalist
PROC: 0WHR8YZ Insertion of Other Device into Genitourinary Tract, Via Natural or Artificial Opening Endoscopic (ICD-10-PCS; 2021-03-14)
PROC: BT1DZZZ Fluoroscopy of Right Kidney, Ureter and Bladder (ICD-10-PCS; 2021-03-14)
PROC: 0T768DZ Dilation of Right Ureter with Intraluminal Device, Via Natural or Artificial Opening Endoscopic (ICD-10-PCS; principal; 2021-03-14 11:30)
DX: N13.2 Hydronephrosis with renal and ureteral calculous obstruction (principal); N17.9 Acute kidney failure, unspecified; N26.1 Atrophy of kidney (terminal); E11.9 Type 2 diabetes mellitus without complications; I10 Essential (primary) hypertension; I25.10 Atherosclerotic heart disease of native coronary artery without angina pectoris; Z20.822 Contact with and (suspected) exposure to COVID-19
CPT/HCPCS: 96365; 96361; 96368; 93005; 87088; 85025 ×2; 87086; 80048 ×2; 36415; 83735; 85610; 82947 ×3; 80076; 83036; 84484; 80053; 84145; 83880; 70450; 76377; 74176; 71045; 74450; 51610; 96375; 99285; 96366; 52005; 52332; U0003; J2704; J2250; J3010; J3475; J1170 ×4; J0690; G0378 ×2; J7040 ×2; J7030 ×2; J2405 ×4; G0379; 81003; 81015

== ENCOUNTER 2021-04-26 07:16 | Day surgery (SDC) | payer OTHER ==
[2021-04-21 11:24] LABS: Absolute Lymphocytes (CBC) 2.5 K/uL (0.7-4.9); Hematocrit 43.4 % (39.6-49.0); Lymphocytes % 29.3 % (15.3-44.8); MPV 8.3 fL (7.6-11.3); RBC Red Blood Cell Count 4.76 M/uL (4.33-5.43)
[2021-04-21 11:25] LABS: Protime INR 1.09
[2021-04-26] MEDS ORDERED: NA CHLORIDE 0.9% 1,000 ML ONE (07:43)
[2021-04-26] MEDS ORDERED: AMPICILLIN SODIUM 2 GM in NA CHLORIDE 0.9% 100 ML IVPB ONE (08:00)
[2021-04-26] MEDS ORDERED: Gentamicin Inj 240 MG in NA CHLORIDE 0.9% 100 ML IVPB ONE (08:00)
[2021-04-26] MEDS ORDERED: FENTANYL CITR 100 MCG/2 ML ONE ×2 (08:54→11:04)
[2021-04-26] MEDS ORDERED: propofoL 200 MG/20 ML VIAL IV ONE ×2 (08:55→11:04)
[2021-04-26] MEDS ORDERED: MIDAZOLAM HCL 2 MG/2 ML INJ ONE ×2 (08:55→11:04)
[2021-04-26] MEDS ORDERED: LIDOCAINE 1% MPF 5 ML VIAL ONE ×2 (08:55→11:04)
--- NOTE | 2021-04-26 11:03 | RAD REPORT ---
EXAM DESCRIPTION: RAD - Chest Pa And Lat (2 Views) - 04/26/2021 10:29 am CLINICAL HISTORY: new onset dyspnea COMPARISON: Single-view chest 03/13/2021 TECHNIQUE: Frontal and lateral views of the chest were obtained. FINDINGS: The lungs are clear. No failure or volume overload suspected. No suspicious change to the lung markings since prior imaging study. Heart size is upper normal. Upper lobe pulmonary vasculature within normal limits. No pleural effusi on or pneumothorax seen. No acute bone finding. Left shoulder joint degenerative changes are present . No aortic abnormality. IMPRESSION: No acute cardiopulmonary process. No significant change from comparison study.
[2021-04-26] MEDS ORDERED: dexAMETHasone 10 MG/ML VIAL ONE (11:04)
--- NOTE | 2021-04-26 11:04 | P.PN ---
Date of Service: 04/26/21 Patient seen and evaluated. Patient seen evaluation by cardiology a week ago for cardiac clearance. Patient is doing well clinically. Patient had symptoms while taking out the garbage of some dyspnea and neck discomfort but he has had some vertebral issues, and his symptoms had disappeared after a few seconds. Patient is clinically doing well and at this time patient is medically cleared for surgery. Patient low-moderate risk of cardiopulmonary complications, but in current clinical settings the benefits outweigh the risk. I would advise to proceed with elective surgery as all recent cardiac and pulmonary work-up by literary writer a week ago are essentially unremarkable. EKG, CXR, and vitals are WNL. No evidence of pneumonia-no fever, cough, or congestion; no evidence of ACS-no chest pain, diaphoresis, no acute dyspnea, etc. and no evidence of acute CHF-no CXR findings or clinical findings of CHF. Full note to follow
[2021-04-26] MEDS ORDERED: GLYCOPYRROLATE 0.2 MG/ML SYR ONE ×2 (11:51→12:08)
[2021-04-26] MEDS ORDERED: ROCURONIUM 50 MG/5 ML VIAL IV ONE (11:58)
[2021-04-26] MEDS ORDERED: EPHEDRINE SULF 50 MG/ML VIAL ONE (12:08)
[2021-04-26] MEDS ORDERED: Mastisol Adhesive Liq ONE (12:10)
--- NOTE | 2021-04-26 12:40 | RAD REPORT ---
EXAM DESCRIPTION: RAD - Urography Retrograde - 04/26/2021 12:28 pm FINDINGS: There were 9 portable fluoroscopic KUB images obtained during fluoroscopic assisted placem ent of a right ureteral stent. No suspicious or unexpected finding. Fluoro time was 20 seconds.
[2021-04-26] MEDS ORDERED: PHENAZOPYRIDINE 100MG TAB PO ONE ×2 (13:15→13:36)
--- NOTE | 2021-04-26 13:47 | OP ---
Surgeon: ROLANDO BECKFORD Preoperative Diagnoses: 1.Right proximal ureterolithiasis. 2.Right 3 mm Benigno plaque. Postoperative Diagnoses: 1.Right proximal ureterolithiasis. 2.Right 3 mm Benigno plaque. 3.Urethral mucosal flap. Principal Procedures Performed: 1.Urethroscopy with dilation of the mucosal flap. 2.Right ureteroscopy with stone basketing. 3.Right ureteral stent exchange. 4.Urethral Patel catheter placement. Indication For Procedure: Mr. Gould presented to the Urology Clinic after having been seen urgent ly for obstructing right ureterolithiasis causing acute kidney injury and signs of sepsis. He underw ent urgent right ureteral stent placement and presents today for definitive management. Procedure In Detail: The patient was consented in the preoperative holding area before being transfe rred to the operative suite where general anesthesia was induced. He was given ampicillin and gentam icin 240 mg IV antimicrobial prophylaxis. Pneumo boots were provided for DVT prophylaxis. He was pl aced in the lithotomy position, padded and secured to the table appropriately. His genitalia were pr epped using Hibiclens and draped in standard fashion. The case was begun using a 22-[place] rigid cys toscope to traverse the urethra. During the process, a mucosal flap from the right lateral wall of t he proximal/perineal urethra was created and did make difficulty with further passage of the scope. I utilized an alligator grasper to divide the mucosa centrally within the flap in order to successful ly pass the cystoscope beyond it and into the bladder. His bladder was decompressed of fluid and uri ne, and the stent was noted to emanate from the right ureteral orifice. This was grasped and deliver ed via the meatus. The tip of the stent was left within the proximal ureter. I then attempted to pa ss the Sensor wire via the stent into the upper pole collecting system, but initially, the wire did c oil without passing around the stone. As a result, I removed the stent intending to leave the coil o f the wire in the proximal ureter, but on repeat fluoroscopic imaging, after removing the stent, the wire did propagate up into the putative collecting system. Thus, I passed a dual-lumen catheter into the mid distal ureter over the wire and performed a retrograde pyelogram. Right retrograde pyelography: Using a 70:30 mixture of Omnipaque and saline, contrast was injected via the second lumen of the dual -lumen catheter and this time did propagate up the ureter and beyond the point of obstruction before entering the renal pelvis, delineating the calices and identifying the wire within the upper pole nato yx. As such, I removed the dual-lumen catheter and performed direct vision semi-rigid ureteroscopy v ia the urethra and into the right ureter. I navigated into the proximal mid right ureter before iden tifying the presence of the 5 mm calculus. Because the ureter seemed adequately dilated, I employed a 2.2-[place]izen [place] 0 tip Nitinol basket to grasp the stone and then I was able to deliver it successfully o ut of the ureter with ease. I then back-loaded the cystoscope over the indwelling safety wire and pa ssed a 6-[place] x 24 cm double-J right ureteral stent with a coil observed fluoroscopically within th e renal pelvis and 1 cystoscopically formed within the bladder. The stent was left on its tether/str ing, and emanated from the meatus. I then surveyed the urethra on the way out and identified the res idual area of urethral flap superiorly and inferiorly with the hole that had been created in the midd le. I thus employed the alligator grasper to remove the components of the flap so that the raw area of the urethral mucosa could remucosalize on its own without a separate channel having been created b y that flap. Once this was done, I was then able to pass a 20-[place] tip Patel catheter into his bladder with ease, and I placed 15 cc of sterile water in the balloon. The catheter was connect ed to a leg bag and the stent string was secured using Mastisol and Steri-Strips to the head of his p johnathon. He was then taken out of the lithotomy position, awakened from general anesthesia, transferred to a stretcher, and then transferred to the recovery room in good condition. Complications: Urethral mucosal flap on insertion of the cystoscope. Discharge Disposition: We will maintain the urethral Patel catheter for the next 3 days to allow rem ucosalization of approximately 2 cm area of the mid proximal urethra to occur. Meanwhile, we will co ntinue him on Bactrim Double Strength tablet antimicrobial therapy to allow adequacy of healing witho ut infection. Ultimately, we will plan removal of the stent as well as the urethral catheter on . WR/MODL Voice ID: [id number] Report ID: [id number]
[2021-04-26 14:06] VITALS: BP 147/87; TEMP 97.2; O2SAT 97
== END 2021-04-26 14:02 | disposition home or self-care (01) ==
LOC: OR 07:16
PROVIDERS: ATTEND Urology
PROC: 0T768DZ Dilation of Right Ureter with Intraluminal Device, Via Natural or Artificial Opening Endoscopic (ICD-10-PCS; 2021-04-26)
PROC: 0TC68ZZ Extirpation of Matter from Right Ureter, Via Natural or Artificial Opening Endoscopic (ICD-10-PCS; 2021-04-26)
PROC: 0T768DZ Dilation of Right Ureter with Intraluminal Device, Via Natural or Artificial Opening Endoscopic (ICD-10-PCS; principal; 2021-04-26 09:00)
DX: N17.9 Acute kidney failure, unspecified (principal); N20.1 Calculus of ureter; Z20.822 Contact with and (suspected) exposure to COVID-19
CPT/HCPCS: 52332; 52352; 87088; 85025; 87086; 80048; 36415; 85610; 82947 ×3; 88300; 82360; 71046; 74420; U0002; J2704; J1580; J2250; J3010; J7030; J0290; J1100

== ENCOUNTER 2021-05-03 08:38 | Day surgery (SDC) | payer OTHER ==
[2021-05-03 09:11] VITALS: BP 153/91; TEMP 96.4; O2SAT 100; BMI 41.0
--- NOTE | 2021-05-03 10:12 | OP ---
Surgeon: ROLANDO BECKFORD Reason For Visit: Need for right ureteral stent extraction and urethral Becerra extraction. History Of Present Illness: Mr. Packer is a 65-year-old gentleman who on the day of surgery last we ek noted that within the last few days, he had had increased difficulty breathing. As a result, a Da y Surgery consultation by the hospitalist service was performed to assess his medical status and prov becki clearance before we proceeded with surgery. No abnormalities were noted at that time despite his complaints of increased difficulties breathing in the last few days. Subsequent to the procedure, lane guerrero was admitted to [facility] with apparently some sort of arrhythmia for which a biventricula r pacemaker was placed. His negative assembler, Dr. Pearson, has been actively involved in managing his ca re since that time. As a result, he was unable to make his followup appointment on Sunday to have e stent and the catheter removed. He thus presents today for that procedure. URETHRAL BECERRA CATHETER AND RIGHT URETERAL STENT, RIGHT URETERAL TETHERED STENT EXTRACTION PROCEDURE NOTE: The patient was placed supine on the Day Surgery bed, and the catheter was disconnected from the leg bag. I then deflated the balloon of approximately 15 mL of sterile water, and asked the patient to t ivett a deep breath while I removed the Becerra catheter with ease. I then quickly also grasped the chinoh ered ureteral stent string and easily removed the ureteral stent. He tolerated the procedure well an d without complications. He notes that he had never completed the Bactrim I prescribed for him on discharge because when he wa s in [facility], they discontinued it. They instead started him on 3 days of an alternate an timicrobial. I explained he should continue to take that antimicrobial, but otherwise, stone prevent ion instructions were given as follows: 1.Increase volume of fluid intake such that he voids with a full bladder every 3 to 4 hours during t day. Avoid drinking much after dinnertime to decrease needing to wake up at night to void. 2.Add citric acid to his beverages to also decrease the risk of stone formation. 3.Since this is his first stone forming event, a further metabolic analysis would not be required; elgin patel, I did psychosocial rehabilitation counselor the patient that should he have another stone event, that metabolic evaluation w ould be indicated. HERRERA/MODL Voice ID: [id number] Report ID: [id number]
== END 2021-05-03 09:02 | disposition home or self-care (01) ==
LOC: DS 08:38
PROVIDERS: ATTEND Urology
PROC: 0TP97DZ Removal of Intraluminal Device from Ureter, Via Natural or Artificial Opening (ICD-10-PCS; principal; 2021-05-03)
DX: N20.1 Calculus of ureter (principal)

== ENCOUNTER 2023-11-24 08:50 | Emergency (ER) | payer OTHER ==
[2023-11-24 09:24] LABS: Absolute Eosinophils 0.1 K/uL (0-0.5); Absolute Lymphocytes (CBC) 1.6 K/uL (0.7-4.9); Absolute Monocytes 0.9 K/uL (0.1-1.3); Absolute Neutrophil 9.2 K/uL (1.8-8.0); Basophils % 0.3 % (0-1.3); Eosinophils % 0.8 % (0-4.4); Hematocrit 41.8 % (39.6-49.0); Lymphocytes % 13.5 % (15.3-44.8); MCH 31.1 pg (27.0-35.0); MCHC 33.5 g/dL (32.0-36.0); MCV 92.7 fL (80-100); MPV 8.4 fL (7.6-11.3); Monocytes % 7.9 % (3.3-12.3); Neutrophils % 77.5 % (41.7-73.7); Platelets 109 thou/uL (152-406); RBC Red Blood Cell Count 4.51 M/uL (4.33-5.43)
[2023-11-24] MEDS ORDERED: CEFTRIAXONE 1000 MG/VIAL ONE (09:28)
[2023-11-24] MEDS ORDERED: ONDANSETRON 4 MG/2 ML VIAL ONE ×2 (09:28→10:13)
[2023-11-24] MEDS ORDERED: MORPHINE 2 MG/ML SYR ONE ×2 (09:28→10:13)
[2023-11-24] MEDS ORDERED: TAMSULOSIN 0.4 MG SR CAP ONE (09:28)
[2023-11-24] MEDS ORDERED: NA CHLORIDE 0.9% 500 ML ONE (09:29)
[2023-11-24 09:41] LABS: Albumin 3.7 g/dL (3.4-5.0); Albumin/Globulin Ratio 0.9 (1.1-1.8); Anion Gap 9.6 mEq/L (5.0-15.0); Bilirubin Total 1.1 mg/dL (0.2-1.0); Globulin 4.2 g/dL (2.3-3.5); Potassium 4.6 mEq/L (3.5-5.1); Protein, Total 7.9 g/dL (6.4-8.2)
--- NOTE | 2023-11-24 10:22 | RAD REPORT ---
EXAM DESCRIPTION: CT - Stone Protocol - 11/24/2023 9:36 am CLINICAL HISTORY: Flank pain. HEMATURIA COMPARISON: <Comparisons> TECHNIQUE: Axial images were obtained without oral or IV contrast. Lack of contrast limits solid org an and vascular assessment. The [id number] spans the entirety of the system partially obscuring uppermost abdomen and lung bases. Coronal reformatted images were obtained and reviewed. All CT scans are performed using dose optimization technique as appropriate and may include automated exposure control or mA/KV adjustment according to patient size. FINDINGS: The lower lung lombardo are clear. Imaged portions of the liver and spleen show no suspicious findings on non-contrast imaging.Cholelith iasis. The pancreas and adrenal glands are normal. No pathologic lymphadenopathy in the abdomen or pe lvis. Multiple calculi are present in the calices of both kidney, largest inferiorly and anteriorly in the right kidney measuring 7 mm. 7 mm stone is present proximal right ureter resulting in mild right hydr onephrosis. No bowel obstruction, free air, free fluid or abscess. Appendectomy clips. No significant bony abnormality. IMPRESSION: 7 mm stone proximal right ureter resulting in mild right hydronephrosis. Additional bilateral caliceal stones are present bilaterally. Cholelithiasis.
[2023-11-24] MEDS ORDERED: NA CHLORIDE 0.9% 1,000 ML ONE (11:14)
[2023-11-24] MEDS ORDERED: PROMETHAZINE INJ 25 MG/ML AMP ONE (11:14)
[2023-11-24 11:16] LABS: Specific Gravity 1.015 (1.005-1.030); Sqamous Epithelial <5 /HPF (None Seen); Urine Bacteria None Seen /HPF (<20); Urine Bilirubin NEGATIVE (Negative); Urine Blood 3+ (OVER) (Negative); Urine Clarity Turbid (Clear); Urine Color Yellow (Yellow); Urine Culture Reflex Order NOT NEEDED; Urine Glucose TRACE (Negative); Urine Ketones NEGATIVE (Negative); Urine Microscopic Reflex YN ORDER UMIC; Urine Nitrite NEGATIVE (Negative); Urine Protein 1+ (Negative); Urine RBC >50 /HPF (None Seen); Urine Urobilinogen Normal (Normal); Urine WBC <5 /HPF (<5); Urine Yeast (Budding) Occasional /HPF (None Seen)
--- NOTE | 2023-11-24 12:31 | EDPHYS ---
Physician Documentation [facility] Name: Robert Gould Age: 67 yrs Sex: Male : 1955 Arrival Date: 11/24/2023 Time: 08:50 Bed 6 Private MD: ED Physician Chris Taveras HPI: 11/23 11:42 This 67 yrs old Male presents to ER via Ambulatory with complaints of blood tai in urine. 11:42 The patient presents with abdominal pain abdominal distention in the upper abdomen, in tai the lower abdomen. Onset: The symptoms/episode began/occurred 2 day(s) ago. The patient complains of pain in the right mid back and right low back. The pain radiates to the right mid back and right low back. Onset: The symptoms/episode began/occurred 2 day(s) ago. Modifying factors: The symptoms are alleviated by nothing. the symptoms are aggravated by nothing. The patient presents to the emergency department with nausea, vomiting, that is intermittent. Possible causes: flare up of bowel problem, pain , stone. The symptoms are aggravated by nothing. The symptoms are alleviated by nothing. The symptoms radiate to the right flank. Historical: - Allergies: 09:07 Flagyl; ll1 - PMHx: 09:07 diabetes mellitus; Hypertensive disorder; Myocardial infarction; ll1 09:08 Kidney stone; aa5 - PSHx: 09:07 Appendectomy; ll1 09:08 Pacemaker; aa5 - Immunization history:: Adult Immunizations up to date. - Infectious Disease History:: Denies. - Social history:: Smoking status: Patient denies any tobacco usage or history of. - Family history:: not pertinent. ROS: 11:42 Constitutional: Negative for fever, chills, and weight loss, Eyes: Negative for injury, tai pain, redness, and discharge, ENT: Negative for injury, pain, and discharge, Neck: Negative for injury, pain, and swelling, Cardiovascular: Negative for chest pain, palpitations, and edema, Respiratory: Negative for shortness of breath, cough, wheezing, and pleuritic chest pain, : Negative for injury, bleeding, discharge, and swelling, MS/Extremity: Negative for injury and deformity, Skin: Negative for injury, rash, and discoloration, Neuro: Negative for headache, weakness, numbness, tingling, and seizure, Psych: Negative for depression, anxiety, suicide ideation, homicidal ideation, and hallucinations, Allergy/Immunology: Negative for hives, rash, and allergies, Endocrine: Negative for neck swelling, polydipsia, polyuria, polyphagia, and marked weight changes, Hematologic/Lymphatic: Negative for swollen nodes, abnormal bleeding, and unusual bruising, 11:42 Abdomen/GI: Positive for abdominal pain, nausea and vomiting, 11:42 Back: Positive for flank pain, on the right, Exam: 11:42 Constitutional: This is a well developed, well nourished patient who is awake, alert, tai and in no acute distress. Head/Face: Normocephalic, atraumatic. Eyes: Pupils equal round and reactive to light, extra-ocular motions intact. Lids and lashes normal. Conjunctiva and sclera are non-icteric and not injected. Cornea within normal limits. Periorbital areas with no swelling, redness, or edema. ENT: Nares patent. No nasal discharge, no septal abnormalities noted. Tympanic membranes are normal and external auditory canals are clear. Oropharynx with no redness, swelling, or masses, exudates, or evidence of obstruction, uvula midline. Mucous membranes moist. Neck: Trachea midline, no thyromegaly or masses palpated, and no cervical lymphadenopathy. Supple, full range of motion without nuchal rigidity, or vertebral point tenderness. No Meningismus. Chest/axilla: Normal chest wall appearance and motion. Nontender with no deformity. No lesions are appreciated. Cardiovascular: Regular rate and rhythm with a normal S1 and S2. No gallops, murmurs, or rubs. Normal PMI, no JVD. No pulse deficits. Respiratory: Lungs have equal breath sounds bilaterally, clear to auscultation and percussion. No rales, rhonchi or wheezes noted. No increased work of breathing, no retractions or nasal flaring. Abdomen/GI: Soft, non-tender, with normal bowel sounds. No distension or tympany. No guarding or rebound. No evidence of tenderness throughout. Back: No spinal tenderness. No costovertebral tenderness. Full range of motion. Male : Normal genitalia with no discharge or lesions. Skin: Warm, dry with normal turgor. Normal color with no rashes, no lesions, and no evidence of cellulitis. MS/ Extremity: Pulses equal, no cyanosis. Neurovascular intact. Full, normal range of motion. Neuro: Awake and alert, GCS 15, oriented to person, place, time, and situation. Cranial nerves II-XII grossly intact. Motor strength 5/5 in all extremities. Sensory grossly intact. Cerebellar exam normal. Normal gait. Psych: Awake, alert, with orientation to person, place and time. Behavior, mood, and affect are within normal limits. Vital Signs: 08:58 BP 186 / 99; Pulse 82; Resp 18 S; Temp 98.2(O); Pulse Ox 97% on R/A; Weight 122.47 kg aa5 (R); Height 5 ft. 8 in. (R); Pain 4/10; 10:15 BP 179 / 90; Pulse 80; Resp 18 S; Pulse Ox 95% on R/A; aa5 10:57 BP 172 / 88; Pulse 64; Resp 16; Pulse Ox 97% ; bp 13:29 BP 160 / 76; Pulse 66; Resp 16; Pulse Ox 95% ; bp 08:58 Body Mass Index 41.05 (122.47 kg, 172.72 cm) aa5 08:58 Pain Scale: Adult aa5 MDM: 08:58 Patient medically screened. [facility] 11:47 Differential diagnosis: UTI, viral gastroenteritis, gastroenteritis, Cholelithiasis, tai diverticulitis, gastritis, gastroesophageal reflux disease, Herpes Zoster, Irritable bowel syndrome, non-specific abd pain, pancreatitis, Peptic Ulcer Disease. Data reviewed: vital signs, nurses notes, lab test result(s), radiologic studies, CT scan. Consideration of Admission/Observation Escalation of care including admission/observation considered. I considered the following discharge prescriptions or medication management in the emergency department Medications were administered in the Emergency Department. See MAR. Independent interpretation of the following test(s) in the Emergency Department CT Scan: My interpretation is ct stone. Test considered but Not performed: EKG: no ekg. Historians other than the Patient: Spouse/Significant Other: well informed. Care significantly affected by the following chronic conditions: Diabetes, Hypertension, mi, kidney stones. 11/23 09:02 Order name: CBC with Diff; Complete Time: 09:51 [facility] 11/23 09:02 Order name: Comprehensive Metabolic Panel; Complete Time: 09:51 [facility] 11/23 09:02 Order name: Urine Culture [facility] 11/23 09:02 Order name: Urinalysis w/ reflexes; Complete Time: 11:33 tai 11/23 09:22 Order name: Stone Protocol; Complete Time: 10:28 EDMS Administered Medications: 09:42 Drug: NS 0.9% IV 500 ml IV at bolus once Route: IV; Rate: bolus; Site: right aa5 antecubital; 13:30 Follow up: IV Status: Completed infusion; IV Intake: 500ml bp 09:42 Drug: Rocephin IV 1 grams IV at per protocol once; Given slow IV push per pharmacy aa5 instructions Route: IV; Rate: per protocol; Site: right antecubital; 13:30 Follow up: IV Status: Completed infusion; IV Intake: 100ml bp 09:42 Drug: morphine IVP or IV 2 mg IVP once over 4 mins Route: IVP; Infused Over: 4 mins; aa5 Site: right antecubital; 13:27 Follow up: Response: No adverse reaction bp 09:42 Drug: Ondansetron IVP 4 mg IVP once; over 2 minutes Route: IVP; Site: right antecubital;aa5 13:28 Follow up: Response: No adverse reaction bp 10:17 Drug: Ondansetron IVP 4 mg IVP once; over 2 minutes Route: IVP; Site: right antecubital;aa5 13:28 Follow up: Response: No adverse reaction bp 10:18 Drug: morphine IVP or IV 2 mg IVP once over 4 mins Route: IVP; Infused Over: 4 mins; aa5 Site: right antecubital; 13:27 Follow up: Response: No adverse reaction bp 10:18 Drug: Flomax PO 0.4 mg PO once Route: PO; aa5 13:28 Follow up: Response: No adverse reaction bp 11:17 Drug: Promethazine IVP 12.5 mg IVP once Route: IVP; Site: right antecubital; aa5 13:28 Follow up: Response: No adverse reaction bp 11:17 Drug: NS 0.9% IV 1000 ml IV at 1 bolus Per protocol; 1000 mL bolus Route: IV; Rate: 1 aa5 bolus; Site: right antecubital; 13:27 Follow up: IV Status: Completed infusion; IV Intake: 1000ml bp Disposition Summary: 11/24/23 12:30 Discharge Ordered Notes: Location: Home tai Problem: new tai Symptoms: have improved tai Condition: Stable tai Diagnosis - Gross hematuria tai - Hydronephrosis with renal and ureteral calculous obstruction - 7mm right proximal tai ureter - Acute kidney failure, unspecified - on chronic tai - Nausea tai Followup: tai - With: Private Physician - When: 2 - 3 days - Reason: Recheck today's complaints, Continuance of care, Re-evaluation by your physician Followup: tai - With: Robin Sharma MD - When: 2 - 3 days - Reason: Recheck today's complaints, Re-evaluation by your physician Discharge Instructions: - Discharge Summary Sheet tai - Hematuria, Adult tai - Kidney Stones tai - Nausea and Vomiting, Adult tai - Nausea, Adult tai - Kidney Stones, [id number] tai - Nausea and Vomiting, Adult, Iybu-or-Kome tai - Hydronephrosis tai - Acute Kidney Injury, Adult tai - Chronic Kidney Disease, Adult, Txhz-pu-Hhys tai - Dietary Guidelines to Help Prevent Kidney Stones tai - Nausea, Adult, Pqax-ys-Nwok tai Forms: - Medication Reconciliation Form tai - Antibiotic Education tai - Prescription Opioid Use tai - Patient Portal Instructions [facility] - Leadership Thank You Letter [facility] Prescriptions: - Flomax 0.4 mg Oral capsule - take 1 capsule ORAL route once; 21 capsule; Refills: 0, Product Selection [facility] Permitted - acetaminophen-codeine 300-30 mg Oral tablet - take 2 tablet ORAL route every 6 hours as needed for pain; 24 tablet; Refills: tai 0, Product Selection Permitted - ondansetron 4 mg Oral Tablet,disintegrating - take 1 tablet ORAL route every 8-10 hours for 5 days; 20 tablet; Refills: 0, [facility] Product Selection Permitted - promethazine 25 mg Oral Tablet - take 1 tablet ORAL route every 6 hours As needed; 20 tablet; Refills: 0, [facility] Product Selection Permitted Signatures: Dispatcher [employer] EDMS Chris Taveras MD MD cha Calderon, Audri RN RN aa5 Iban Mays RN RN ll1 Nilson Escalona RN bp Corrections: (The following items were deleted from the chart) 09: 09:02 CBC+H.LAB.BRZ ordered. EDMS EDMS 09:02 09:02 COMPREHENSIVE METABOLIC PANEL+C.LAB.BRZ ordered. EDMS EDMS 09:02 09:02 PROTIME (+INR)+COAG.LAB.BRZ ordered. EDMS EDMS : 09:02 Urine Culture+BA.LAB.BRZ ordered. EDMS EDMS : 09:02 Urinalysis+U.LAB.BRZ ordered. EDMS EDMS : 09:02 Abdomen Pelvis W Con+CT.RAD.BRZ ordered. EDMS EDMS
--- NOTE | 2023-11-24 12:31 | ER ---
Nurse's Notes [facility] Name: Robert Gould Age: 67 yrs Sex: Male : 1955 Arrival Date: 11/24/2023 Time: 08:50 Bed 6 Private MD: Diagnosis: Gross hematuria;Hydronephrosis with renal and ureteral calculous obstruction-7mm right proximal ureter;Acute kidney failure, unspecified-on chronic;Nausea Presentation: 11/23 08:58 Chief complaint: Patient states: right flank pain radiating around to right side of [facility] abdomen that began 2-3 days ago, pt also states "I also had blood in my urine yesterday". Pt also reports nausea and vomiting. 08:58 Coronavirus screen: nausea, vomiting. Ebola Screen: Patient denies travel to an [facility] Ebola-affected area in the 21 days before illness onset. Initial Sepsis Screen: Does the patient meet any 2 criteria? No. Patient's initial sepsis screen is negative. Does the patient have a suspected source of infection? No. Patient's initial sepsis screen is negative. Risk Assessment: Do you want to hurt yourself or someone else? Patient reports no desire to harm self or others. 08:58 Acuity: KYRA 3 aa 08:58 Method Of Arrival: Ambulatory [facility] 08:58 Onset of symptoms was November 2023. [facility] Triage Assessment: 09:10 General: Appears uncomfortable, obese, Behavior is calm, cooperative, appropriate for bp age. Pain: Complains of pain in right low back. EENT: No deficits noted. Neuro: No deficits noted. : Reports pain in right flank(s). Historical: - Allergies: 09:07 Flagyl; ll1 - PMHx: 09:07 diabetes mellitus; Hypertensive disorder; Myocardial infarction; ll1 09:08 Kidney stone; aa5 - PSHx: 09:07 Appendectomy; ll1 09:08 Pacemaker; aa5 - Immunization history:: Adult Immunizations up to date. - Infectious Disease History:: Denies. - Social history:: Smoking status: Patient denies any tobacco usage or history of. - Family history:: not pertinent. Screenin:00 [facility] ED Fall Risk Assessment (Adult) History of falling in the last 3 months, aa5 including since admission No falls in past 3 months (0 pts) Confusion or Disorientation No (0 pts) Intoxicated or Sedated No (0 pts) Impaired Gait No (0 pts) Mobility Assist Device Used No (0 pt) Altered Elimination No (0 pt) Score/Fall Risk Level 0 - 2 = Low Risk Oriented to surroundings, Maintained a safe environment, Educated pt \\T\\ family on fall prevention, incl call for assistance when getting out of bed. Abuse screen: Denies threats or abuse. Nutritional screening: No deficits noted. Tuberculosis screening: No symptoms or risk factors identified. Assessment: 08:58 General: Appears comfortable, Behavior is calm, cooperative. Pain: Complains of pain in aa5 right flank Pain radiates to right upper quadrant and right lower quadrant Pain currently is 4 out of 10 on a pain scale. Quality of pain is described as sharp, Pain began 2-3 days ago. Is continuous. Neuro: Level of Consciousness is awake, alert, obeys commands, Oriented to person, place, time, situation. Cardiovascular: Patient's skin is warm and dry. Respiratory: Airway is patent Respiratory effort is even, unlabored, Respiratory pattern is regular, symmetrical. GI: Abdomen is obese, Abd is soft and non tender X 4 quads. Reports nausea, vomiting. : Reports hematuria yesterday. EENT: No signs and/or symptoms were reported regarding the EENT system. Derm: Skin is pink, warm \\T\\ dry. Musculoskeletal: Range of motion: intact in all extremities. 09:40 Reassessment: Patient is alert, oriented x 3, equal unlabored respirations, skin aa5 warm/dry/pink. Pt back from CT scan . 10:15 Reassessment: Patient is alert, oriented x 3, equal unlabored respirations, skin aa5 warm/dry/pink. Patient states symptoms have not improved. Pain: Pain currently is 4 out of 10 on a pain scale. GI: Reports nausea. 11:17 Reassessment: Patient is alert, oriented x 3, equal unlabored respirations, skin aa5 warm/dry/pink. 11:17 Pain: Pain currently is 2 out of 10 on a pain scale. aa5 12:40 Reassessment: Awaiting NS bolus to complete before d/c home. . aa5 12:40 Reassessment: Patient is alert, oriented x 3, equal unlabored respirations, skin aa5 warm/dry/pink. 13:29 Reassessment: Patient is alert, oriented x 3, equal unlabored respirations, skin bp warm/dry/pink. Patient states symptoms have improved. Vital Signs: 08:58 BP 186 / 99; Pulse 82; Resp 18 S; Temp 98.2(O); Pulse Ox 97% on R/A; Weight 122.47 kg aa5 (R); Height 5 ft. 8 in. (R); Pain 4/10; 10:15 BP 179 / 90; Pulse 80; Resp 18 S; Pulse Ox 95% on R/A; aa5 10:57 BP 172 / 88; Pulse 64; Resp 16; Pulse Ox 97% ; bp 13:29 BP 160 / 76; Pulse 66; Resp 16; Pulse Ox 95% ; bp 08:58 Body Mass Index 41.05 (122.47 kg, 172.72 cm) aa5 08:58 Pain Scale: Adult aa ED Course: 08:55 Patient arrived in ED. ra3 08:58 Chris Taveras MD is Attending Physician. tai 08:59 Arm band placed on Patient placed in an exam room, on a stretcher. ll1 08:59 Patient has correct armband on for positive identification. Bed in low position. Call aa5 light in reach. Side rails up X 1. Adult w/ patient. 09:03 Nilson Escalona, GENA is Primary Nurse. bp 09:11 Triage completed. aa5 09:18 No provider procedures requiring assistance completed. aa5 09:35 Inserted saline lock: 20 gauge in right antecubital area, using aseptic technique. oh1 Blood collected. Flushed with 10 mL NS. 09:38 Stone Protocol In Process Unspecified. EDMS 12:30 Robin Sharma MD is Referral Physician. [facility] 13:29 IV discontinued, intact, bleeding controlled, No redness/swelling at site. Pressure bp dressing applied. 13:30 Provided Education on:. bp Administered Medications: 09:42 Drug: NS 0.9% IV 500 ml IV at bolus once Route: IV; Rate: bolus; Site: right aa5 antecubital; 13:30 Follow up: IV Status: Completed infusion; IV Intake: 500ml bp 09:42 Drug: Rocephin IV 1 grams IV at per protocol once; Given slow IV push per pharmacy aa5 instructions Route: IV; Rate: per protocol; Site: right antecubital; 13:30 Follow up: IV Status: Completed infusion; IV Intake: 100ml bp 09:42 Drug: morphine IVP or IV 2 mg IVP once over 4 mins Route: IVP; Infused Over: 4 mins; aa5 Site: right antecubital; 13:27 Follow up: Response: No adverse reaction bp 09:42 Drug: Ondansetron IVP 4 mg IVP once; over 2 minutes Route: IVP; Site: right antecubital;aa5 13:28 Follow up: Response: No adverse reaction bp 10:17 Drug: Ondansetron IVP 4 mg IVP once; over 2 minutes Route: IVP; Site: right antecubital;aa5 13:28 Follow up: Response: No adverse reaction bp 10:18 Drug: morphine IVP or IV 2 mg IVP once over 4 mins Route: IVP; Infused Over: 4 mins; aa5 Site: right antecubital; 13:27 Follow up: Response: No adverse reaction bp 10:18 Drug: Flomax PO 0.4 mg PO once Route: PO; aa5 13:28 Follow up: Response: No adverse reaction bp 11:17 Drug: Promethazine IVP 12.5 mg IVP once Route: IVP; Site: right antecubital; aa5 13:28 Follow up: Response: No adverse reaction bp 11:17 Drug: NS 0.9% IV 1000 ml IV at 1 bolus Per protocol; 1000 mL bolus Route: IV; Rate: 1 aa5 bolus; Site: right antecubital; 13:27 Follow up: IV Status: Completed infusion; IV Intake: 1000ml bp Medication: 09:18 VIS not applicable for this client. aa5 Intake: 13:27 IV: 1000ml; Total: 1000ml. bp 13:30 IV: 100ml; Total: 1100ml. bp 13:30 IV: 500ml; Total: 1600ml. bp Outcome: 12:30 Discharge ordered by MD. lujan 13:29 Discharged to home ambulatory, with family, bp 13:29 Condition: stable 13:29 Discharge instructions given to patient, family, Instructed on discharge instructions, follow up and referral plans. medication usage, Demonstrated understanding of instructions, follow-up care, medications, Prescriptions given X 5 13:31 Patient left the ED. bp Signatures: Dispatcher [employer] MS Chris Taveras MD MD cha Calderon, Audri, RN RN aa5 Nilson Escalona RN RN bp Iban Mays RN RN ll1 Flavia Stubbs ra3 Amanda Aly [facility]
[2023-11-24 13:40] VITALS: TEMP 98.2
[2023-11-24 13:43] VITALS: BP 160/76; O2SAT 95
== END 2023-11-24 13:31 | disposition home or self-care (01) ==
LOC: ER 08:50
DX: N13.2 Hydronephrosis with renal and ureteral calculous obstruction (principal); R11.0 Nausea; E11.22 Type 2 diabetes mellitus with diabetic chronic kidney disease; I12.9 Hypertensive chronic kidney disease with stage 1 through stage 4 chronic kidney disease, or unspecified chronic kidney disease; N18.9 Chronic kidney disease, unspecified; N17.9 Acute kidney failure, unspecified; Z95.0 Presence of cardiac pacemaker
CPT/HCPCS: 96365; 87088; 85025; 81001; 87086; 36415; 80053; 76377; 74176; 96375; 99284; 96366; J2550; J2270 ×2; J2405 ×2; J7040; J7030; J0696